=== PATIENT | female | born 1950 | race Caucasian/White ===

== ENCOUNTER 2020-08-21 14:42 | Emergency (ER) | payer MEDICARE, SELFPAY ==
[2020-08-21 15:24] VITALS: BP 168/99; PULSE 86; RESP 16; TEMP 37.3; O2SAT 96; BMI 41.0
--- NOTE | 2020-08-21 15:37 | US_ITS ---
EXAMINATION: US VENOUS ULTRASOUND WITH DOPPLER LOWER EXTREMITY, RIGHT CLINICAL INFORMATION: Pain and swelling COMPARISON: None TECHNIQUE: Ultrasound of the deep veins is performed from the hip to the calf with compression sonography and color and pulse Doppler assessment. Spectral analysis with color-flow imaging is performed. FINDINGS: There is normal venous compression and respiratory variation and augmented flow. The visualized common femoral vein, superficial femoral vein, profunda femoral vein, popliteal vein, and the trifurcation region shows no evidence of deep venous thrombosis. There is a 9 x 1.2 x 6.2 cm likely complex fluid collection inferior medial to the right knee in the proximal calf. This may represent a ruptured Bakers cyst. US/US venous duplex LE RT IMPRESSION: No DVT demonstrated in the right lower extremity. 9 x 1.2 x 6.2 cm slightly complex fluid collection in the medial proximal calf, question representing a ruptured Mistry's cyst.
--- NOTE | 2020-08-21 15:38 | XR_ITS ---
EXAMINATION: XR CHEST CLINICAL INFORMATION: Lower extremity swelling. COMPARISON: None TECHNIQUE: 2 views of the chest were obtained. FINDINGS: Mild linear markings are seen in the lingula. The left upper lung field and right lung are clear. The heart and mediastinal structures are unremarkable. XR/XR chest 2V IMPRESSION: Mild linear atelectasis versus scarring in the lingula. No acute cardiopulmonary process.
--- NOTE | 2020-08-21 15:51 | ED_ITS ---
HPI - Extremity Problem General Chief complaint: Extremity Injury, Lower Stated complaint: rt calf pain Time Seen by Provider: 08/21/20 15:19 Source: patient Mode of arrival: ambulatory Limitations: no limitations History of Present Illness HPI Narrative: 70yoF c PMHx of HTN, hypothyroidism and arthritis presenting to the ED c c/o Right leg swelling/calf pain for 2-3 days worse today. Denies any dizziness, headaches, fevers, chills, nausea/vomiting, chest pain, palpitations, shortness of breath, dyspnea on exertion, orthopnea, back pain, abdominal pain or any other symptoms complaints or concerns. Denies being on any OCPs, history of cancer, recent immobilization, recent travel or hypercoagulation disorder. Denies any other symptoms complaints or concerns at this time. Related Data Allergies Allergy/AdvReac Type Severity Reaction Status Date / Time No Known Allergies Allergy Verified 08/21/20 15:37 Review of Systems Review of Systems: Constitutional : No Weight loss, No Fever, No Chills, No Night Sweats, No Fatigue, No Malaise Eyes: No Eye Pain, No Swelling, No Vision Changes Cardiovascular : No SOB, no Dyspnea on Exertion, No Orthopnea, No Edema, No extremity swelling, No Palpitations Respiratory : No Cough, No Sputum, No Wheezing, No Dyspnea Gastrointestinal : No Nausea, No Vomiting, No Diarrhea, No abdominal Pain, No Hematochezia, No Melena Genitourinary : No irregular bleeding, No Dysuria, No Urinary Frequency, No Hematuria, No Urinary Incontinence, No Urgency, No Flank Pain, No Urinary Flow Changes, No Hesitancy Musculoskeletal : No joint pain, No Myalgias, No Joint Swelling,+ LE edema Skin : No Skin Lesions, No rash Neuro : No Weakness, No Numbness, No Paresthesias, No Loss of Consciousness, No Dizziness, No Headache Psych : No Anxiety/Panic, No Depression, No SI/HI/AH/VH Heme/Lymph: No Bruising, No Bleeding,No Lymphadenopathy Endocrine : No Polyuria, No Polydipsia, No Temperature Intolerance Yes all other systems are reviewed and are negative [facility] Past Medical History Attestation statement: The following information was validated with the patient. Medical History Adult hypothyroidism Arthritis Hypertension Social History Social History Advance Directives: No Advance Directives Information Provided: No Physical Exam Vital Signs: Vital Signs: Last Vital Signs Temp 99.2 F 08/21/20 15:24 Pulse 86 08/21/20 15:24 Resp 16 08/21/20 15:24 BP 168/99 H 08/21/20 15:24 Pulse Ox 96 08/21/20 15:24 Body Mass Index 41.0 vital signs have been reviewed as normal and appeared to be correct. Blood pressure normal. Heart rate normal. Respiration rate normal. Temperature normal. Oxygen saturation normal. Appearance: Alert. Oriented X3. No acute distress. Head: Normal external exam. Normocephalic. Eyes: PERRLA. EOMI. Conjunctiva and sclera normal. Eyelids normal. ENT: Pharynx normal. Uvula midline. Moist mucous membranes. Neck: Normal inspection. Neck supple. FROM. No adenopathy. No meningeal signs. CVS: Normal heart rate and rhythm. Heart sound normal. No murmurs noted. Pulses normal throughout. Respiratory: No respiratory distress. Painless inspiration. Breath sounds normal. No wheezes/rales/rhonchi noted. Chest nontender. No accessory muscle usage noted or decreased air movement noted. Back: Full range of motion noted. Skin: Skin warm and dry. Normal skin color. Normal skin turgor. No rashes/lesions/lacerations noted. Extremities: + RLE edema c calf tenderness. Mild left lower extremity edema although no calf tenderness. Otherwise Extremities exhibit normal range of motion. All other Extremities nontender. Neuro: Oriented X 3. No motor deficit. No sensory deficit. Reflexes normal. Course Course Course Narrative: 15:45pm - 70yoF c PMHx of HTN, hypothyroidism and arthritis presenting to the ED c c/o Right leg swelling/calf pain for 2-3 days worse today. - Concern for CVT vs CHF vs dependent edema. - Plan: Labs, CXR, US of RLE then re-evaluate MDM - Extremity (Nontraumatic) Medical Records Attestation: I reviewed the patient's medical records. Lab Data Attestation: I reviewed the patient's lab results. Result diagrams: 08/21/20 15:44 Labs: Lab Results 08/21/20 08/21/20 Range/Units 15:44 15:44 WBC 7.9 (4.8-10.8) X10*3/uL RBC 4.39 (4.20-5.50) X10*6/uL Hgb 13.3 (12.0-16.0) g/dl Hct 39.7 (37-47) % MCV 90.4 (80-98) fL MCH 30.3 (27.0-33.0) pg MCHC 33.5 (31.0-35.0) g/dl RDW 11.7 (11.0-16.0) % Plt Count 296 (160-400) X10*3/uL MPV 10.2 (9.4-12.3) fL Immature Gran % (Auto) 0.4 (0.0-0.4) % Neut % (Auto) 56.7 (45-73) % Lymph % (Auto) 30.4 (20-40) % [place] % (Auto) 8.2 (2-11) % Eos % (Auto) 3.0 (0-4) % Baso % (Auto) 1.3 (0-2) % Lymph # (Auto) 2.4 (1.2-4.9) X10*3/uL [place] # (Auto) 0.7 (0.1-1.2) X10*3/uL Eos # (Auto) 0.2 (0.0-0.4) X10*3/uL Baso # (Auto) 0.1 (0.0-0.2) X10*3/uL Abs Immat Gran (auto) 0.03 (0.00-0.03) X10*3/uL Absolute Neuts (auto) 4.5 (2.0-8.3) X10*3/uL Absolute Nucleated RBC 0.000 (0.0-0.012) X10*3/uL Nucleated RBC % (auto) 0.0 (0.0-0.2) /100WBC Hold Purple Top SEE NOTE
[2020-08-21 16:00] LABS: MANUAL DIFF FLAG NO
[2020-08-21 16:12] LABS: Basophils Absolute Auto 0.1 X10*3/uL (0.0-0.2); Basophils Percent Auto 1.3 % (0-2); Eosinophils Absolute Auto 0.2 X10*3/uL (0.0-0.4); Hematocrit 39.7 % (37-47); Hemoglobin 13.3 g/dl (12.0-16.0); Imm Gran Abs Auto 0.03 X10*3/uL (0.00-0.03); Imm Gran Pct Auto 0.4 % (0.0-0.4); Lymphocytes Absolute Auto 2.4 X10*3/uL (1.2-4.9); Lymphocytes Percent Auto 30.4 % (20-40); Mean Corpuscular HGB Conc 33.5 g/dl (31.0-35.0); Mean Corpuscular Hemoglobin 30.3 pg (27.0-33.0); Mean Corpuscular Volume 90.4 fL (80-98); Mean Platelet Volume 10.2 fL (9.4-12.3); Monocytes Absolute Auto 0.7 X10*3/uL (0.1-1.2); Monocytes Percent Auto 8.2 % (2-11); Neutrophils Absolute Auto 4.5 X10*3/uL (2.0-8.3); Neutrophils Percent Auto 56.7 % (45-73); Platelet Count 296 X10*3/uL (160-400); Red Blood Count 4.39 X10*6/uL (4.20-5.50); Red Cell Distribution Width 11.7 % (11.0-16.0); White Blood Count 7.9 X10*3/uL (4.8-10.8)
[2020-08-21 16:36] LABS: B Type Natriuretic Peptide 76 pg/mL (<100)
[2020-08-21 16:51] LABS: Prothrombin Time 12.3 SEC (10.8-13.0)
[2020-08-21 17:42] LABS: Alanine Aminotransferase 17 U/L (0-31); Albumin Level 4.4 g/dL (3.5-5.0); Alkaline Phosphatase 54 U/L (39-117); Anion Gap 11 (12-20); Aspartate Amino Transferase 24 U/L (5-31); Bilirubin Direct 0.2 mg/dL (0.0-0.5); Bilirubin Total 0.4 mg/dL (0.0-1.0); Blood Urea Nitrogen 18 mg/dL (9-16); Calcium 8.9 mg/dL (8.4-10.2); Carbon Dioxide 28 mmol/L (22-29); Chloride 109 mmol/L (96-108); Creatinine Clr Calc Pharmacy 61.4; Estimated Glomerular Filt Rate > 60; Glucose Random 91 mg/dL (60-115); Potassium 4.4 mmol/l (3.3-5.1); Sodium 144 mmol/L (135-145); Total Protein 6.8 g/dL (6.5-8.0)
== END 2020-08-21 18:02 | disposition home or self-care (01) ==
PROVIDERS: Physician Assistant Medical; Emergency Provider Emergency Medicine Emergency Medical Services; PCP Internal Medicine
DX: R60.0 Localized edema (principal); M79.604 Pain in right leg; I10 Essential (primary) hypertension; Z79.899 Other long term (current) drug therapy
CPT/HCPCS: 36415; 71046; 80048; 80076; 83880; 85025; 85610; 93971; 99283; 99284

== ENCOUNTER 2020-08-27 10:55 | Outpatient (REF) | payer MEDICARE, SELFPAY ==
--- NOTE | 2020-08-27 11:42 | XR_ITS ---
EXAMINATION: XR KNEES, STANDING AP XR KNEE, RIGHT CLINICAL INFORMATION: Right knee pain COMPARISON: None TECHNIQUE: Standing AP view both knees is performed. Lateral and axial patella views of the right knee are also included. FINDINGS: Right knee shows no fracture or dislocation. No knee compartment narrowing or erosive change or chondrocalcinosis. No definite effusion. Hoffa's fat pad appears normal. There is spurring at the quadriceps insertion on the patella. Axial view shows no patellofemoral joint narrowing or lateralization patella. The left knee shows no fracture, dislocation, destructive process, or joint narrowing. XR/XR knee standing BI IMPRESSION: Unremarkable knees.
--- NOTE | 2020-08-27 11:42 | XR_ITS ---
EXAMINATION: XR KNEES, STANDING AP XR KNEE, RIGHT CLINICAL INFORMATION: Right knee pain COMPARISON: None TECHNIQUE: Standing AP view both knees is performed. Lateral and axial patella views of the right knee are also included. FINDINGS: Right knee shows no fracture or dislocation. No knee compartment narrowing or erosive change or chondrocalcinosis. No definite effusion. Hoffa's fat pad appears normal. There is spurring at the quadriceps insertion on the patella. Axial view shows no patellofemoral joint narrowing or lateralization patella. The left knee shows no fracture, dislocation, destructive process, or joint narrowing. XR/XR knee RT 3V IMPRESSION: Unremarkable knees.
== END 2020-08-27 10:56 | disposition home or self-care (01) ==
LOC: HO.HOSX 10:55
PROVIDERS: Visit Provider Physician Assistant
DX: S86.811A Strain of other muscle(s) and tendon(s) at lower leg level, right leg, initial encounter (principal); R60.9 Edema, unspecified; X50.0XXA Overexertion from strenuous movement or load, initial encounter; Y93.H1 Activity, digging, shoveling and raking; Y92.014 Private driveway to single-family (private) house as the place of occurrence of the external cause; Y99.9 Unspecified external cause status
CPT/HCPCS: 73560; 73562; 73565; 99202

== ENCOUNTER 2021-07-03 14:23 | Emergency (ER) | payer MEDICARE, SELFPAY ==
--- NOTE | ~2021-07-03 | MR_ITS ---
EXAMINATION: MR BRAIN WITHOUT CONTRAST CLINICAL INFORMATION: Dizziness and vertigo. COMPARISON: None. TECHNIQUE: Multiplanar, multisequence imaging of the brain was performed without contrast. FINDINGS: No diffusion abnormalities are identified to suggest an acute infarct. The ventricles are normal in size. No mass effect or midline shift is seen. Nonspecific mild scattered white matter signal changes noted. No extra-axial fluid collections are seen. The brainstem and cerebellum are normal. There is an incidental 1.7 x 1 cm meningioma along the medial wall of the left middle cranial fossa, partially overlying the dura of the left cavernous sinus. The gradient refocused acquisition is normal. The craniovertebral junction and midline structures are normal. The major intracranial flow voids at the level of the [place] are preserved. The dural venous sinus flow voids are maintained. The mastoid air cells are well aerated. Small proteinaceous retention cysts and mild mucosal thickening visible in the left maxillary antrum. A round 0.8 cm low signal focus on T1-weighted imaging in the vertebral body is entirely nonspecific. The remainder of the marrow signal is fairly homogeneous. MR/MR head/brain wo con IMPRESSION: No acute intracranial process. Minimal nonspecific white matter signal changes. Incidental 1.7 cm left middle cranial fossa meningioma.
--- NOTE | ~2021-07-03 | CT_ITS ---
EXAMINATION: CT HEAD WITHOUT CONTRAST CLINICAL INFORMATION: New onset vertigo COMPARISON: None TECHNIQUE: Contiguous axial imaging was performed from the skull base to vertex without intravenous administration of contrast. Coronal and sagittal reformatted images are performed at CT scanner This CT examination was performed using dose optimization techniques as appropriate, variously including the following: *Automated exposure control *Adjustment of mA and/or kV according to patient size (this includes techniques or standardized protocols for targeted exams where dose is matched to indication/reason for exam; i.e. extremities or head) *Use of iterative reconstruction technique DLP: 845 mGy-cm FINDINGS: There is no evidence of acute intracranial hemorrhage or territorial infarction. No abnormal mass effect or midline shift is seen. Dao to white matter differentiation is well preserved. No extra-axial fluid collections are identified. The ventricles are normal in size. There is no abnormal attenuation within the brain parenchyma. The osseous structures and soft tissues are normal. The mastoid air cells and visualized portions of the paranasal sinuses are well aerated. CT/CT head/brain wo con IMPRESSION: No acute intracranial pathology.
--- NOTE | 2021-07-03 17:38 | ED.DIZZY ---
HPI - Dizziness General Chief Complaint: Dizziness <Christophe Khan MD - Last Filed: 07/03/21 17:52> Stated Complaint: dizziness <Christophe Khan MD - Last Filed: 07/03/21 17:52> Time Seen by Provider: 07/03/21 17:38 <Christophe Khan MD - Last Filed: 07/03/21 17:52> Source: patient <Christophe Khan MD - Last Filed: 07/03/21 17:52> Mode of arrival: ambulatory <Christohpe Khan MD - Last Filed: 07/03/21 17:52> Limitations: no limitations <Christophe Khan MD - Last Filed: 07/03/21 17:52> History of Present Illness HPI Narrative: Patient has been getting dizzy in the morning when she wakes up. Patient vomitted twice 4 days ago when it started. patient describes the dizziness as the room spinning. No ear ringing or loss of hearing. The initial episode happened when she had a cramp in her leg and jumped out of bed and the dizziness suddenly happened. <Christophe Khan MD - Last Filed: 07/03/21 17:52> MD elicited complaint: dizziness <Christophe Khan MD - Last Filed: 07/03/21 17:52> Onset (ago): day(s) <Christophe Khan MD - Last Filed: 07/03/21 17:52> Timing: sudden onset <Christophe Khan MD - Last Filed: 07/03/21 17:52> Severity: mild <Christophe Khan MD - Last Filed: 07/03/21 17:52> Description: sense of movement and room spinning <Christophe Khan MD - Last Filed: 07/03/21 17:52> Associated symptoms: nausea and vomiting <Christophe Khan MD - Last Filed: 07/03/21 17:52> Related Data Home Medications: Previous Rx's Medication Instructions Recorded Knee high compression sock 30/40 #1 ea 09/09/20 mmhg meclizine 25 mg tablet 25 mg PO DAILY PRN #30 tab 07/03/21 <Christophe Khan MD - Last Filed: 07/03/21 17:52> Allergies/Adverse Reactions: Allergies Allergy/AdvReac Type Severity Reaction Status Date / Time estrogens, conjugated Allergy Intermediate Rash Verified 07/03/21 18:21 [From Prempro] medroxyprogesterone Allergy Intermediate Rash Verified 07/03/21 18:21 [From Prempro] <Christophe Khan MD - Last Filed: 07/03/21 17:52> Review of Systems Constitutional: Constitutional: Reports no additional constitutional complaints <Christophe Khan MD - Last Filed: 07/03/21 17:52> Eyes: Eyes: Reports no additional eye complaints <Christophe Khan MD - Last Filed: 07/03/21 17:52> ENT: Denies dizziness <Christophe Khan MD - Last Filed: 07/03/21 17:52> Cardiovascular: Cardiovascular: Reports no additional cardiovascular complaints <Christophe Khan MD - Last Filed: 07/03/21 17:52> Respiratory: Respiratory: Reports as per HPI <Christophe Khan MD - Last Filed: 07/03/21 17:52> Gastrointestinal: Gastrointestinal: Reports no additional gastrointestinal complaints <Christophe Khan MD - Last Filed: 07/03/21 17:52> Genitourinary: Genitourinary: Reports no additional female genitourinary complaints <Christophe Khan MD - Last Filed: 07/03/21 17:52> Musculoskeletal: Musculoskeletal: Reports no additional musculoskeletal complaints <Christophe Khan MD - Last Filed: 07/03/21 17:52> Integumentary/Breasts: Skin/Breast: Denies rash <Christophe Khan MD - Last Filed: 07/03/21 17:52> Neurologic: Reports system reviewed and no additional complaints, except as documented, Denies dizziness and Denies Sensory deficit (Neuro) <Christophe Khan MD - Last Filed: 07/03/21 17:52> Psychiatric: Psychiatric: Denies anxiety <Christophe Khan MD - Last Filed: 07/03/21 17:52> PMFSH Past Medical History Medical History: Medical History Adult hypothyroidism Arthritis Hypertension <Christophe Khan MD - Last Filed: 07/03/21 17:52> Social History Social History: Social History (Updated 08/27/20 @ 11:57 by Tawnya Mejia PA-C) Alcohol intake: never Patient Tobacco Use Status: Never used Tobacco Use of substances other than those prescribed or required for medical reasons: No Advance Directives: No Advance Directives Information Provided: Yes Current occupational status: retired Current occupation: [employer] <Christophe Khan MD - Last Filed: 07/03/21 17:52> Physical Exam Vital Signs: Vital Signs: Last Vital Signs Temp 97.9 F 07/03/21 21:10 Pulse 72 07/03/21 21:10 Resp 20 07/03/21 21:10 BP 145/66 H 07/03/21 21:10 Pulse Ox 98 07/03/21 21:10 Body Mass Index 38.0 <Christophe Khan MD - Last Filed: 07/03/21 17:52> Vital Signs: Last Vital Signs Temp 97.9 F 07/03/21 21:10 Pulse 72 07/03/21 21:10 Resp 20 07/03/21 21:10 BP 145/66 H 07/03/21 21:10 Pulse Ox 98 07/03/21 21:10 Body Mass Index 38.0 <Jesica Still MD - Last Filed: 07/04/21 11:14> Const: General: healthy appearing <Christophe Khan MD - Last Filed: 07/03/21 17:52> Nutritional Appearance: average body habitus <Christophe Khan MD - Last Filed: 07/03/21 17:52> Orientation/consciousness: oriented to person and patient oriented x3 <Christophe Khan MD - Last Filed: 07/03/21 17:52> Limitations: no limitations <Christophe Khan MD - Last Filed: 07/03/21 17:52> HENMT: Head: Yes normal to inspection <Christophe Khan MD - Last Filed: 07/03/21 17:52> Ears: external ears normal and TM's normal bilaterally <Christophe Khan MD - Last Filed: 07/03/21 17:52> General nose exam: Normal external nose present <Christophe Khan MD - Last Filed: 07/03/21 17:52> Mouth: Normal oral and palatal mucosa present and oropharynx normal <Christophe Khan MD - Last Filed: 07/03/21 17:52> Throat: Yes posterior oropharynx normal <Christophe Khan MD - Last Filed: 07/03/21 17:52> Eyes: Other: no nystagmus <Christophe Khan MD - Last Filed: 07/03/21 17:52> General: appearance normal, both eyes and all related structures <Christophe Khan MD - Last Filed: 07/03/21 17:52> Neck: Other: supple <Christophe Khan MD - Last Filed: 07/03/21 17:52> Neck: Yes normal visual inspection <Christophe Khan MD - Last Filed: 07/03/21 17:52> Chest: Chest palpation & inspection: normal inspection of the chest <Christophe Khan MD - Last Filed: 07/03/21 17:52> Resp: Auscultation: clear to auscultation bilaterally <Christophe Khan MD - Last Filed: 07/03/21 17:52> Cardio: Jugular venous distension: no JVD <Christophe Khan MD - Last Filed: 07/03/21 17:52> Rate: regular rate <Christophe Khan MD - Last Filed: 07/03/21 17:52> Rhythm: regular rhythm <Christophe Khan MD - Last Filed: 07/03/21 17:52> Heart sounds: S1 normal heart sound present and S2 normal heart sound present <Christophe Khan MD - Last Filed: 07/03/21 17:52> GI: Inspection: Yes normal to inspection <Christophe Khan MD - Last Filed: 07/03/21 17:52> Palpation (GI): Soft to palpation, nontender and No hepatosplenomegaly present <Christophe Khan MD - Last Filed: 07/03/21 17:52> Auscultation: normal bowel sounds <Christophe Khan MD - Last Filed: 07/03/21 17:52> : General: Yes no CVA tenderness <Christophe Khan MD - Last Filed: 07/03/21 17:52> Back/Spine/Pelvis: Back: no CVA tenderness <Christophe Khan MD - Last Filed: 07/03/21 17:52> Skin: General skin exam: no rashes or lesions noted <Christophe Khan MD - Last Filed: 07/03/21 17:52> Neuro: Other: slight feeling of movement with changes in position. No nystagmus <Christophe Khan MD - Last Filed: 07/03/21 17:52> General: oriented to person and patient oriented x3 <Christophe Khan MD - Last Filed: 07/03/21 17:52> Cranial nerves: Yes CN's II-XII intact bilaterally <Christophe Khan MD - Last Filed: 07/03/21 17:52> Motor exam (neuro): 5/5 motor strength present throughout <Christophe Khan MD - Last Filed: 07/03/21 17:52> Sensory Exam: No Sensory deficit (Neuro) <Christophe Khan MD - Last Filed: 07/03/21 17:52> Extrem: General: Yes normal to inspection <Christophe Khan MD - Last Filed: 07/03/21 17:52> Psych: Appearance: grossly normal <Christophe Khan MD - Last Filed: 07/03/21 17:52> Course Course Course Narrative: Assessment and plan. 70-year-old female came in for evaluation of dizziness and lower extremities cramps, patient was seen initially by Dr. Mohamud pike and signed out to me to check on test results. Repeat neuro exam is unremarkable andNIH score is 0, CT/MRI is unremarkable. Will discharge the patient on meclizine and drink plenty of fluid, patient was instructed also to move slowly when changed position. <Jesica Still MD - Last Filed: 07/04/21 11:14> MDM - Dizziness Medical Records Attestation: I reviewed the patient's medical records. <Jesica Still MD - Last Filed: 07/04/21 11:14> Lab Data Attestation: I reviewed the patient's lab results. <Jesica Still MD - Last Filed: 07/04/21 11:14> Result diagrams: : 07/03/21 18:35 07/03/21 18:35 <Christophe Khan MD - Last Filed: 07/03/21 17:52> Labs: Lab Results 07/03/21 07/03/21 Range/Units 18:35 18:35 WBC 6.1 (4.8-10.8) X10*3/uL RBC 4.25 (4.20-5.50) X10*6/uL Hgb 13.2 (12.0-16.0) g/dl Hct 38.2 (37-47) % MCV 89.9 (80-98) fL MCH 31.1 (27.0-33.0) pg MCHC 34.6 (31.0-35.0) g/dl RDW 11.7 (11.0-16.0) % Plt Count 267 (160-400) X10*3/uL MPV 10.0 (9.4-12.3) fL Immature Gran % (Auto) 0.2 (0.0-0.4) % Neut % (Auto) 47.3 (45-73) % Lymph % (Auto) 38.9 (20-40) % Early % (Auto) 9.2 (2-11) % Eos % (Auto) 3.1 (0-4) % Baso % (Auto) 1.3 (0-2) % Lymph # (Auto) 2.4 (1.2-4.9) X10*3/uL Early # (Auto) 0.6 (0.1-1.2) X10*3/uL Eos # (Auto) 0.2 (0.0-0.4) X10*3/uL Baso # (Auto) 0.1 (0.0-0.2) X10*3/uL Abs Immat Gran (auto) 0.01 (0.00-0.03) X10*3/uL Absolute Neuts (auto) 2.9 (2.0-8.3) X10*3/uL Absolute Nucleated RBC 0.000 (0.0-0.012) X10*3/uL Nucleated RBC % (auto) 0.0 (0.0-0.2) /100WBC Sodium 142 (135-145) mmol/L Potassium 4.3 (3.3-5.1) mmol/L Chloride 108 (96-108) mmol/L Carbon Dioxide 25 (22-29) mmol/L Anion Gap 13 (12-20) BUN 17 H (9-16) mg/dL Creatinine 0.84 (0.5-1.4) mg/dL Estim Creat Clear Calc 61.6 Estimated GFR > 60 Random Glucose 95 (60-115) mg/dL Calcium 9.3 (8.4-10.2) mg/dL <Christophe Khan MD - Last Filed: 07/03/21 17:52> Lab Results 07/03/21 07/03/21 Range/Units 18:35 18:35 WBC 6.1 (4.8-10.8) X10*3/uL RBC 4.25 (4.20-5.50) X10*6/uL Hgb 13.2 (12.0-16.0) g/dl Hct 38.2 (37-47) % MCV 89.9 (80-98) fL MCH 31.1 (27.0-33.0) pg MCHC 34.6 (31.0-35.0) g/dl RDW 11.7 (11.0-16.0) % Plt Count 267 (160-400) X10*3/uL MPV 10.0 (9.4-12.3) fL Immature Gran % (Auto) 0.2 (0.0-0.4) % Neut % (Auto) 47.3 (45-73) % Lymph % (Auto) 38.9 (20-40) % Early % (Auto) 9.2 (2-11) % Eos % (Auto) 3.1 (0-4) % Baso % (Auto) 1.3 (0-2) % Lymph # (Auto) 2.4 (1.2-4.9) X10*3/uL Early # (Auto) 0.6 (0.1-1.2) X10*3/uL Eos # (Auto) 0.2 (0.0-0.4) X10*3/uL Baso # (Auto) 0.1 (0.0-0.2) X10*3/uL Abs Immat Gran (auto) 0.01 (0.00-0.03) X10*3/uL Absolute Neuts (auto) 2.9 (2.0-8.3) X10*3/uL Absolute Nucleated RBC 0.000 (0.0-0.012) X10*3/uL Nucleated RBC % (auto) 0.0 (0.0-0.2) /100WBC Sodium 142 (135-145) mmol/L Potassium 4.3 (3.3-5.1) mmol/L Chloride 108 (96-108) mmol/L Carbon Dioxide 25 (22-29) mmol/L Anion Gap 13 (12-20) BUN 17 H (9-16) mg/dL Creatinine 0.84 (0.5-1.4) mg/dL Estim Creat Clear Calc 61.6 Estimated GFR > 60 Random Glucose 95 (60-115) mg/dL Calcium 9.3 (8.4-10.2) mg/dL <Jesica Still MD - Last Filed: 07/04/21 11:14> Imaging Data CT scan - head: Radiologist's impression: No acute intracranial pathology. <Jesica Still MD - Last Filed: 07/04/21 11:14> MRI - head: Radiologist's impression: No acute intracranial process. Minimal nonspecific white matter signal changes. Incidental 1.7 cm left middle cranial fossa meningioma. <Jesica Still MD - Last Filed: 07/04/21 11:14> Discharge Plan Discharge Clinical Impression: Vertigo <Christophe Khan MD - Last Filed: 07/03/21 17:52> Patient Disposition: Home, Self-Care <Christophe Khan MD - Last Filed: 07/03/21 17:52> Instructions: Vertigo (ED) <Christophe Khan MD - Last Filed: 07/03/21 17:52> Prescriptions: New meclizine 25 mg tablet 25 mg PO DAILY PRN (Reason: dizziness) Qty: 30 RF: 0 No Action (DME) Knee high compression sock 30/40 mmhg See Rx Instructions .ROUTE .MEDSUPPLY Qty: 1 RF: 0 <Christophe Khan MD - Last Filed: 07/03/21 17:52> Referrals: Cindy De Los Santos MD [Primary Care Provider] - 2 days <Christophe Khan MD - Last Filed: 07/03/21 17:52> Interventions: ED Discharge Assessment Last Done: 07/03/21 21:52 <Christophe Khan MD - Last Filed: 07/03/21 17:52> Discharge Date/Time: 07/03/21 22:04 <Christophe Khan MD - Last Filed: 07/03/21 17:52>
--- NOTE | 2021-07-03 17:52 | ECG_ITS ---
Test Reason : Dizziness Blood Pressure : / mmHG Vent. Rate : 071 BPM Atrial Rate : 071 BPM P-R Int : 130 ms QRS Dur : 084 ms QT Int : 408 ms P-R-T Axes : -03 -12 -13 degrees QTc Int : 443 ms Normal sinus rhythm with sinus arrhythmia Left axis deviation Nonspecific T wave abnormality Abnormal ECG No previous ECGs available Referred By: Christophe Khan Electronically Signed By:CUAUHTEMOC ANDERSON MD
[2021-07-03 18:21] VITALS: BP 154/83; PULSE 73; RESP 18; TEMP 36.7; BMI 38.0
--- NOTE | 2021-07-03 18:36 | PC.NURSE ---
patient a&ox3, iv inserted, labs drawn, quality assurance monitor chassis applied, vss, will continue to monitor
[2021-07-03 18:43] LABS: MANUAL DIFF FLAG NO
[2021-07-03 18:44] LABS: Basophils Absolute Auto 0.1 X10*3/uL (0.0-0.2); Basophils Percent Auto 1.3 % (0-2); Eosinophils Absolute Auto 0.2 X10*3/uL (0.0-0.4); Eosinophils Percent Auto 3.1 % (0-4); Hematocrit 38.2 % (37-47); Hemoglobin 13.2 g/dl (12.0-16.0); Imm Gran Abs Auto 0.01 X10*3/uL (0.00-0.03); Imm Gran Pct Auto 0.2 % (0.0-0.4); Lymphocytes Absolute Auto 2.4 X10*3/uL (1.2-4.9); Lymphocytes Percent Auto 38.9 % (20-40); Mean Corpuscular HGB Conc 34.6 g/dl (31.0-35.0); Mean Corpuscular Hemoglobin 31.1 pg (27.0-33.0); Mean Corpuscular Volume 89.9 fL (80-98); Monocytes Absolute Auto 0.6 X10*3/uL (0.1-1.2); Monocytes Percent Auto 9.2 % (2-11); Neutrophils Absolute Auto 2.9 X10*3/uL (2.0-8.3); Neutrophils Percent Auto 47.3 % (45-73); Platelet Count 267 X10*3/uL (160-400); Red Blood Count 4.25 X10*6/uL (4.20-5.50); Red Cell Distribution Width 11.7 % (11.0-16.0); White Blood Count 6.1 X10*3/uL (4.8-10.8)
[2021-07-03 18:56] LABS: Anion Gap 13 (12-20); Blood Urea Nitrogen 17 mg/dL (9-16); Calcium 9.3 mg/dL (8.4-10.2); Carbon Dioxide 25 mmol/L (22-29); Chloride 108 mmol/L (96-108); Creatinine Clr Calc Pharmacy 61.6; Estimated Glomerular Filt Rate > 60; Glucose Random 95 mg/dL (60-115); Potassium 4.3 mmol/L (3.3-5.1); Sodium 142 mmol/L (135-145)
--- NOTE | 2021-07-03 19:30 | PC.NURSE ---
pt transported to mri
[2021-07-03 21:10] VITALS: BP 145/66; PULSE 72; RESP 20; TEMP 36.6; O2SAT 98
--- NOTE | 2021-07-03 21:23 | PC.NURSE ---
patient returned from MRI, EKG was performed upon her return, vitals are stable, no c/o pain or discomfort at this time, will continue to monitor.
== END 2021-07-03 22:04 | disposition home or self-care (01) ==
PROVIDERS: Emergency Provider Emergency Medicine; PCP Internal Medicine
DX: R42 Dizziness and giddiness (principal); I10 Essential (primary) hypertension
CPT/HCPCS: 36415; 70450; 70551; 80048; 85025; 93005; 99284; 99285

== ENCOUNTER 2025-04-22 14:11 | Outpatient (AMB) | payer MEDICARE, SELFPAY ==
--- OUTSIDE RECORDS SUMMARY | 2025-04-22 14:58 | XMS_ITS | Clinical Summary ---
Author Organization [address] [place] [address] [place] [phone] Phone Care Team Providers Care Icu Specialist Name Role Phone Cindy De Los Santos MD Primary Care Provider [phone] Allergies Active Allergy Reactions Criticality Noted Date Comments Conj Estrog-Medroxyprogest Fer Nausea And Vomiting 05/25/2006 Other Reaction(s): Rash/Dermatitis Medications diclofenac (VOLTAREN) 1 % topical gel Apply 1 Dose topically See Admin Instructions. Apply 4 g to each affected area up to 4 times daily; maximum dose per joint: 16 g/day; maximum total body dose (all combined joints): 32 g/day. 4 Active ascorbic acid (VITAMIN C) 1,000 mg tablet Take 1 tablet (1,000 mg total) by mouth. Active MULTIVITAMIN ORAL Take 1 tablet by mouth. Active cholecalciferol (VITAMIN D-3) 25 mcg (1,000 unit) capsule Take 1 capsule (1,000 Units total) by mouth. Active aspirin 81 mg EC tablet Take 1 tablet (81 mg total) by mouth 1 (one) time each day. Active calcium carb/vit D3/minerals (CALCIUM-VITAMI N D ORAL) Take by mouth. Activ e fluticasone propionate (FLONASE) 50 mcg/actuation nasal spray Administer 2 sprays into each nostril 1 (one) time each day for 14 days. Shake gently. Before first use, prime pump. After use, clean tip and replace cap. 16 g 5 Active meclizine (ANTIVERT) 25 mg tablet TAKE 1 TABLET BY MOUTH THREE TIMES A DAY NEEDED FOR DIZZINESS 30 tablet 3 5 Active atorvastatin (LIPITOR) 20 mg tablet TAKE 1 TABLET BY MOUTH EVERY DAY 90 tablet 1 5 Active levothyroxine (SYNTHROID, LEVOTHROID) 75 mcg tabletIndicatio ns:Melena,Abnor mal findings on diagnostic imaging of other specified body structures TAKE 1 TABLET BY MOUTH EVERY DAY 90 tablet 1 5 Active lisinopriL (PRINIVIL,ZESTR IL) 10 mg tablet TAKE 1 TABLET BY MOUTH EVERY DAY 90 tablet 5 Active Active Problems Problem Noted Date Diagnosed Date Morbid obesity with BMI of 4 0.0-44.9, adult ([facility] V24, [facility] V28) 08/14/2024 Vertigo 11/03/2021 Overview (08/14/2024): Dr. jose Constipation 04/26/2018 White coat syndrome with diagnosis of hypertensi on 03/09/2017 Meningioma ([facility] V24, [facility] V28) 10/01/2015 Overview (08/14/2024): Left middle temporal fossa- Dr. Jose Hypothyroidism 05/25/2006 Pure hypercholesterolemia 05/25/2006 Immunizations Name Administration Dates Next Due H1N1 Inj Preservative Free 08/18/2009 Influenza Quadravalent, MDCK , 0.5ml, with preservative (Flucelvax) 6mo and older 08/16/2017 Influenza trivalent, 0.5mL ( Fluad) 65yo and older 06/09/2022,06/05/2021,06/05/2019,2017 Influenza trivalent, 0.5mL, preservative free (Fluarix; FluLaval; Fluzone) ages 6mo and older (Afluria) 3 years and older 06/25/2023,06/09/2022,05/28/2020,2015,05/26/2015,07/16/2014,07/24/2013,1 ,08/18/2009,07/11/2008 Influenza, Unspecified 06/05/2021,06/05/2019 Moderna (age 6mo & older) Bi valent, COVID-19, 0.5 mL or 0.25 mL dosage 06/09/2022 Moderna SARS-CoV-2 COVID-19, mRNA, LNP-S, preservative free 06/25/2024 Pfizer (ages 12 & older) Biv alent, COVID-19 06/25/2023 Pneumococcal conjugate 13 va lent (Prevnar 13, PCV13) 2mo and older 03/30/2017 Pneumococcal conjugate 20 va lent (Prevnar 20, PCV 20) 2mo and older 08/02/2023 Td Tetanus diptheria (Tdvax) 7yo and older 05/31/2005,08/14/2003 Td, Unspecified 08/14/2003 Tdap Tetanus diptheria acell ular pertussis (Boostrix; Adacel) 7yo and older 08/02/2023,04/01/2011,05/31/2005 Zoster Live 05/29/2014 Zoster recombinant (Shingrix ) 19yo and older 01/19/2024,08/12/2023 Surgical History Surgery Date Site/Laterality Comments COLONOSCOPY 2012 PROCEDURE: HISTORICAL COLONOSCOPY; COMMENT: no polyps COLONOSCOPY 2006 PROCEDURE: HISTORICAL COLONOSCOPY; COMMENT: no polyps. COLONOSCOPY 08/13/2002 PROCEDURE: HISTORICAL COLONOSCOPY; COMMENT: 5 mm sigmoid colon polyp. COLONOSCOPY 08/08/2018 PROCEDURE: HISTORICAL COLONOSCOPY; COMMENT: 7 mm sigmoid colon polyp: tubular adenoma. Medical History Medical History Date Comments Pure hypercholesterolemia 05/25/2006 DX:Pur e hypercholesterolemia Unspecified hypothyroidism 05/25/2006 DX:Un specified hypothyroidism Obesity, unspecified 05/25/2006 DX:Obesity, unspecified Personal history of colonic polyps DX:Personal history of colonic polyps Family history of malignant neoplasm of gastrointestinal tract 10/24/2006 DX:Family history of maligna nt neoplasm of gastrointestinal tract; COMMENT: first-degree x 1, diagnosis older than 60. Negative colonoscopy 10/24/2006, no colon cancer screening needed for 5 years. Fracture of ankle DX:Fracture of ankle; COMMENT: right White coat syndrome with william gnosis of hypertension 03/09/2017 Family History Medical History Relation Name Comments Heart attack Father age 49, fr om Ca no details (pt smoker, may be lung Ca) Alzheimer's disease Mother Arthritis Mother Colon cancer Mother Breast cancer Sister 1 Cancer of Small Bowel Neg Hx Kidney cancer Neg Hx Ovarian cancer Neg Hx Pancreatic cancer Neg Hx Uterine cancer Neg Hx Relation Name Status Comments Brother 1 Brother 2 Alive Brother 3 Alive Brother 4 Alive Brother 5 Alive Daughter Alive Father (Age 85) Mother (Age 87) Sister 1 Sister 2 Sister 3 Alive Sister 4 Alive Social History Tobacco Use Types Packs/Day Years Used Date Smoking Tobacco: Never Smokeless Tobacco: Never Tobacco Cessation:Counseling Given: Not Answered Alcohol Use Standard Drinks/Week Comments No 0 (1 standard drink = 0.6 oz pur e alcohol) Comments Unknown Sex and Gender Information Value Date Recorded Sex Assigned at Not on file Legal Sex Female 9:26 AM EST Gender Identity Not on file Sexual Orientation Not on file Obstetrics History Last Filed Vital Signs Vital Sign Reading Time Taken Comments Blood Pressure 112/72 12/03/2024 9:33 AM EDT Pulse 74 12/03/2024 9:33 AM EDT Temperature 36.3 C (97.3 F) 12/03/2024 9:33 AM EDT Respiratory Rate 14 12/03/2024 9:33 AM EDT Oxygen Saturation 98% 12/03/2024 9:33 AM EDT Inhaled Oxygen Concentration - - Weight 92.5 kg (204 lb) 12/03/2024 9:33 AM EDT Height 152.4 cm (5') 12/03/2024 9:33 AM EDT Body Mass Index 39.84 12/03/2024 9:33 AM EDT Plan of Treatment Upcoming Encounters Date Type Department Care Team (Late st Contact Info) Description 07/01/2025 9:45 AM EDT Office Visit Adult Medicine [address] [phone] Cindy De Los Santos MD [address] [place] [address] Health Maintenance Due Date Last Done Comments RSV Immunization Adult Patients (1 - Risk 60-74 years 1-dose series) 2010 Falls Risk Assessment 08/14/2022 Medicare Annual Wellness Visit 08/14/2022 Social Influencers of Health Screening 08/14/2022 COVID-19 Vaccine ( season) 2024 06/25/2024, 06/25/2023, 06/09/2022, Additional history exists Depression Screening 09/05/2024 Influenza Vaccine (#1) 2025 , 06/25/2023, 06/09/2022, Additional history exists Hypertension/CHF/CAD Annual BMP Blood Test 12/26/2025 12/26/2024, 05/29/2024, 05/29/2024 Breast Cancer Screening 06/27/2026 06/27/20, 06/27/2024, 05/07/2023, Additional history exists Colorectal Cancer Screening: Colonoscopy 08/31/2028 08/31/2023 Cholesterol Screening (Lipid Panel) 12/26/2029 12/26/2024, 05/29/2024, 05/29/2024, Additional history exists Osteoporosis Screening (Bone Density Screening) 07/19/2033 07/19/2023, 04/23/2020, 12/23/2016 DTaP,Tdap,and Td Vaccines (7 - Td or Tdap) 08/02/2033 08/02/2023, 04/01/2011, 05/31/2005, Additional history exists Hepatitis C Screening Completed 08/13/2014 Pneumococcal Vaccine: 50+ Years Completed 08/02/2023, 03/30/2017 Zoster Vaccines Completed 01/19/2024, 04/2023, 05/29/2014 HIB Vaccines Aged Out No longer eligi ble based on patient's age to complete this topic HPV Vaccines Aged Out No longer eligi ble based on patient's age to complete this topic Hepatitis A Vaccines Aged Out No long er eligible based on patient's age to complete this topic Hepatitis B Vaccines Aged Out No long er eligible based on patient's age to complete this topic IPV Vaccines Aged Out No longer eligi ble based on patient's age to complete this topic MMR Vaccines Aged Out No longer eligi ble based on patient's age to complete this topic Meningococcal ACWY Vaccine Aged Out N o longer eligible based on patient's age to complete this topic Meningococcal B Vaccine Aged Out No l onger eligible based on patient's age to complete this topic RSV Immunization Patients Under 20 months Aged Out No longer eligible based on patient's age to complete this topic Varicella Vaccines Aged Out No longer eligible based on patient's age to complete this topic Procedures Procedure Name Priority Date/Time Associated Diagnosis Comments COMPREHENSIVE METABOLIC PANEL Routine 12/26/2024 9:05 AM EDT Urinary frequency Pain of left calf Pure hypercholesterolemia LIPID PANEL WITH REFLEX TO DIRECT LDL Routine 12/26/2024 9:05 AM EDT Urinary frequency Pain of left calf Pure hypercholesterolemia SCREENING MAMMOGRAPHY BI 2-VIEW BREAST INC CAD Routine 06/27/2024 4:37 PM EDT Encounter for screening mammogram for malignant neoplasm of breast COLONOSCOPY Routine 08/31/2023 DXA BONE DENSITY STUDY 1+ SITS AXIAL SKEL Routine 07/19/2023 11:46 AM EST Asymptomatic menopausal state HEPATITIS C SCREENING Routine 08/13/2014 from Last 3 Months or Most Recently Relevant to Health Maintenance Results * Lipid panel with reflex to direct LDL (12/26/2024 9:05 AM EDT) Cholesterol 189 0 - 200 mg/dL LAB CHEMISTRY METHOD 12/26/2024 1:01 PM [facility] Triglycerides 143 0 - 150 mg/dL LAB CHEMISTRY METHOD 12/26/2024 1:01 PM [facility] HDL 61 >=40 mg/dL LAB CHEMISTRY METHOD 12/26/2024 1:01 PM [facility] LDL Calculated 99 0 - 100 mg/dL LAB CHEMISTRY METHOD 12/26/2024 1:01 PM [facility] VLDL Cholesterol Uriel 28.6 mg/dL LAB CHEMISTRY METHOD 12/26/2024 1:01 PM [facility] Non HDL Chol. (LDL+VLDL) 128 <145 mg/dL LAB CHEMISTRY METHOD 12/26/2024 1:01 PM [facility] Chol/HDL Ratio 3.1 0.0 - 4.4 LAB CHEMISTRY METHOD 12/26/2024 1:01 PM [facility] Blood Venous blood specimen / Unknown Venipuncture / Unknown 12/26/2024 9:05 AM EDT 12/26/2024 9:05 AM EDT us Dash THACKER LAB BLOOD ORDERABLES Fin al Result [facility] [address] [place] [address], * (ABNORMAL) Comprehensive metabolic panel (12/26/2024 9:05 AM EDT) Sodium 141 133 - 145 mmol/L LAB CHEMISTRY METHOD 12/26/2024 1:01 PM [facility] Potassium 4.2 3.5 - 5.5 mmol/L LAB CHEMISTRY METHOD 12/26/2024 1:01 PM [facility] Chloride 109 96 - 110 mmol/L LAB CHEMISTRY METHOD 12/26/2024 1:01 PM [facility] CO2 28 21 - 32 mmol/L LAB CHEMISTRY METHOD 12/26/2024 1:01 PM [facility] Anion Gap 4 3 - 11 LAB CHEMISTRY METHOD 12/26/2024 1:01 PM [facility] Glucose 111(H) 70 - 100 mg/dL LAB CHEMISTRY METHOD 12/26/2024 1:01 PM [facility] BUN 27(H) 5 - 25 mg/dL LAB CHEMISTRY METHOD 12/26/2024 1:01 PM [facility] Creatinine 0.98 0.50 - 1.10 mg/dL LAB CHEMISTRY METHOD 12/26/2024 1:01 PM [facility] eGFR 61 >=60 mL/min/1. 73m2 LAB CHEMISTRY METHOD 12/26/2024 1:01 PM [facility] Comment:Calculation based on the Chronic Kidney Disease Epidemiology Collaboration (CKD-EPI) equation refit without adjustment for race. BUN/Creatinine Ratio 27.6 LAB CHEMISTRY METHOD 12/26/2024 1:01 PM T [facility] Calcium 9.1 8.5 - 10.5 mg/dL LAB CHEMISTRY METHOD 12/26/2024 1:01 PM [facility] AST (SGOT) 14 10 - 42 unit/L LAB CHEMISTRY METHOD 12/26/2024 1:01 PM [facility] ALT (SGPT) 27 10 - 60 unit/L LAB CHEMISTRY METHOD 12/26/2024 1:01 PM [facility] Alkaline Phosphatase 66 42 - 121 unit/L LAB CHEMISTRY METHOD 12/26/2024 1:01 PM [facility] Total Protein 6.7 6.0 - 8.0 g/dL LAB CHEMISTRY METHOD 12/26/2024 1:01 PM [facility] Albumin 3.9 3.2 - 5.0 g/dL LAB CHEMISTRY METHOD 12/26/2024 1:01 PM [facility] Total Bilirubin 0.6 0.0 - 1.4 mg/dL LAB CHEMISTRY METHOD 12/26/2024 1:01 PM [facility] Blood Venous blood specimen / Unknown Venipuncture / Unknown 12/26/2024 9:05 AM EDT 12/26/2024 9:05 AM EDT us Dash THACKER LAB BLOOD ORDERABLES Fin al Result [facility] [address] [place] [address], * SCREENING MAMMOGRAPHY BI 2-VIEW BREAST INC CAD (06/27/2024 4:37 PM EDT) Anatomical Region Laterality Modality Radiographic Reema ging 05/07/2023 9:19 AM EDT Narrative 06/28/2024 3:47 PM EDT This is a summary report. The complete report is available in the patient's medical record. If you cannot access the medical record, please contact the sending organization for a detailed fax or copy. BILATERAL 3D DIGITAL SCREENING MAMMOGRAM History: Routine screening. No current breast complaints. Family history of breast cancer in sister Comparison: Multiple priors dating back to 04/23/2020 Technique: Bilateral full-field digital 3D mammography was performed using standard CC and MLO projections CAD was used to evaluate this mammogram. Findings: Density: There are scattered areas of fibroglandular density-B RIGHT: No suspicious masses, groups of microcalcification or areas of architectural distortion identified. Stable typically benign parenchymal asymmetries LEFT: No suspicious masses, groups of microcalcifications or areas of architectural distortion identified. Stable typically benign parenchymal asymmetries IMPRESSION: : 1. No mammographic evidence of malignancy. BI-RADS Category 2 benign findings Recommendation: Routine annual screening mammography is recommended [address] [id number] Procedure Note Hortencia Auguste MD - 07/30/2024 This is a summary report. The complete report is available in thepatient's medical record. If you cannot access the medical record, pleasecontact the sending organization for a detailed fax or copy. BILATERAL 3D DIGITAL SCREENING MAMMOGRAM History: Routine screening. No current breast complaints. Family historyof breast cancer in sister Comparison: Multiple priors dating back to 04/23/2020 Technique: Bilateral full-field digital 3D mammography was performed usingstandard CC and MLO projections CAD was used to evaluate this mammogram. Findings: Density: There are scattered areas of fibroglandular density-B RIGHT: No suspicious masses, groups of microcalcification or areas ofarchitectural distortion identified. Stable typically benign parenchymalasymmetries LEFT: No suspicious masses, groups of microcalcifications or areas ofarchitectural distortion identified. Stable typically benign parenchymalasymmetries IMPRESSION: : 1. No mammographic evidence of malignancy. BI-RADS Category 2 benign findings Recommendation: Routine annual screening mammography is recommended [address] [id number] Cindy De Los Santos MD IMG XR PROCEDURES Final Result * Hm Colonoscopy (08/31/2023) Colonoscopy abstract Dary mix [facility] Anatomical Region Laterality Modality Other us Historical Provider HEALTH MAINTENANCE Final Result * DXA BONE DENSITY STUDY 1+ SITS AXIAL SKEL (07/19/2023 11:46 AM EST) Anatomical Region Laterality Modality Bone Densitometr y 11/01/2022 4:51 PM EST Narrative 07/19/2023 5:28 PM EST Clinical history: menopausal/postmenopausal disorder Scans of the lumbar spine and hips were performed on a [employer] fan beam bone densitometer. Bone mineral density measurements and associated T and Z scores respectively are as follows: Lumbar Spine: L1-L4 BMD: 1.059 g/cm2 T-Score: 0.1 Z-Score: 2.4 Compared with the prior study dated 04/23/2020, the BMD reading has increased which is not statistically significant Left Proximal Femur: Neck BMD: 0.751 g/cm2 T-Score: -0.9 Z-Score: 1.1 Total BMD: 1.034 g/cm2 T-Score: 0.8 Z-Score: 2.4 Compared with standards for the young adult, lowest measured bone density places the patient in the W.H.O. normal range. IMPRESSION: IMPRESSION: Normal bone density. The NOF guidelines recommend that FDA approved medical therapies be considered in postmenopausal women and men age >50 years with a: i. Hip or vertebral (clinical or morphometric) fracture ii. T score of < -2.5 at the spine or hip iii. 10 year fracture probability by FRAX of >3% for hip fracture, or >20% for major osteoporotic fracture PLEASE NOTE: W.H.O. classification is based on lowest measured density at the spine, femoral neck, or total hip.This classification has prognostic significance when applied to post menopausal women and older men. 1) The World Health Organization defines low BMD as follows: T-score Normal at or > -1 Osteopenia < -1 and > -2.5 Osteoporosis at or < -2.5 without fractures Established osteoporosis < -2.5 with fractures Procedure Note Hortencia Auguste MD - 10/10/2023 Clinical history: menopausal/postmenopausal disorder Scans of the lumbar spine and hips were performed on a [employer] beam bone densitometer. Bone mineral density measurements and associated T and Z scoresrespectively are as follows: Lumbar Spine: L1-L4 BMD: 1.059 g/cm2 T-Score: 0.1 Z-Score: 2.4 Compared with the prior study dated 04/23/2020, the BMD reading hasincreased which is not statistically significant Left Proximal Femur: Neck BMD: 0.751 g/cm2 T-Score: -0.9 Z-Score: 1.1 Total BMD: 1.034 g/cm2 T-Score: 0.8 Z-Score: 2.4 Compared with standards for the young adult, lowest measured bone densityplaces the patient in the W.H.O. normal range. IMPRESSION: IMPRESSION: Normal bone density. The NOF guidelines recommend that FDA approved medical therapies beconsidered in postmenopausal women and men age >50 years with a: i. Hip or vertebral (clinical or morphometric) fracture ii. T score of < -2.5 at the spine or hip iii. 10 year fracture probability by FRAX of >3% for hip fracture, or >20%for major osteoporotic fracture PLEASE NOTE: W.H.O. classification is based on lowest measured density at the spine,femoral neck, or total hip.This classification has prognostic significance when applied to postmenopausal women and older men. 1) The World Health Organization defines low BMD as follows: T-score Normal at or > -1 Osteopenia < -1 and > -2.5 Osteoporosis at or < -2.5 withoutfractures Established osteoporosis < -2.5 with fractures Cindy De Los Santos MD IMG DXA PROCEDURES Final Result * Hepatitis C Screening (08/13/2014) [facility] Hepatitis C Screening Abstracted Historical Provider HEALTH MAINTENANCE Final Result from Last 3 Months or Most Recently Relevant to Health Maintenance Insurance [facility] ([facility]) MEDICARE ADVANTAGE Care Teams Icu Specialist Relationship Specialty Start Date End Date Cindy De Los Santos MD [address] [place] [address] PCP - General 06/09/00
--- OUTSIDE RECORDS SUMMARY | 2025-04-22 14:58 | XMS_ITS | Clinical Summary ---
Author Organization [facility] Address [address] [facility] [address] [place] [address] Phone Care Team Providers Care Screw Cutter Name Role Phone Cindy De Los Santos MD Primary Care Provider [phone] Allergies Active Allergy Reactions Criticality Noted Date Comments Conj Estrog-Medroxyprogest Fer Other (see comments) 05/25/2006 Medications atorvastatin (LIPITOR) 20 MG tablet Take 10 mg by mouth 1 (one) time each day 3 Active betamethasone valerate (VALISONE) 0.1 % ointment Place a pea size drop on finger tip and apply to external genitalia every night for 2 weeks, then every other day for two week, followed by twice per week for one month and then weekly 1 Active levothyroxine (SYNTHROID, LEVOTHROID) 75 MCG tablet Take 75 mcg by mouth 1 (one) time each day 3 Active aspirin (ST WENDI) 81 MG EC tablet Take 81 mg by mouth 1 (one) time each day Active Multiple Vitamin (multivitamin) tablet Take 1 tablet by mouth 1 (one) time each day Active Ascorbic Acid (vitamin C) 1000 MG tablet Take 1,000 mg by mouth 1 (one) time each day Active cholecalciferol (D3-1000) 25 MCG (1000 UT) capsule Take 1,000 Units by mouth 1 (one) time each day Active lisinopril 10 MG tablet Take 1 tablet (10 mg total) by mouth 1 (one) time each day 30 tablet 5 3 Active Active Problems Problem Noted Date Diagnosed Date Essential hypertension 03/09/2017 Family History Medical History Relation Comments Heart disease Father Hypotension Mother Relation Status Comments Father Mother Social History Tobacco Use Types Packs/Day Years Used Date Smoking Tobacco: Never Smokeless Tobacco: Never Tobacco Cessation:Counseling Given: Not Answered Alcohol Use Standard Drinks/Week Comments Not Currently 0 (1 standard drink = 0.6 oz pur e alcohol) Comments Unknown Sex and Gender Information Value Date Recorded Sex Assigned at Not on file Legal Sex Female 10:50 AM EST Gender Identity Not on file Sexual Orientation Not on file Last Filed Vital Signs Vital Sign Reading Time Taken Comments Blood Pressure 140/92 05/23/2023 3:58 PM EDT Pulse 76 05/23/2023 3:58 PM EDT Temperature - - Respiratory Rate - - Oxygen Saturation 98% 05/23/2023 3:58 PM EDT Inhaled Oxygen Concentration - - Weight 92.3 kg (203 lb 6.4 oz) 05/23/2023 3:58 P M EDT Height 152.4 cm (5') 05/23/2023 3:58 PM EDT Body Mass Index 39.72 05/23/2023 3:58 PM EDT Plan of Treatment Health Maintenance Due Date Last Done Comments Breast Cancer Screening 1950 Colorectal Cancer Screening: Annual FOBT 1999 Colorectal Cancer Screening: Colonoscopy 1999 Colorectal Cancer Screening: Sigmoidoscopy 1999 Pneumococcal Vaccine: 50+ Years (2 of 2 - PPSV23, PCV20, or PCV21) 05/25/2017 03/30/2017 Influenza Vaccine (#1) 2025 2, 06/11/2018, 08/16/2017, Additional history exists Hepatitis B Vaccine Aged Out No longe r eligible based on patient's age to complete this topic Insurance [facility] Care Teams Screw Cutter Relationship Specialty Start Date End Date Cindy De Los Santos MD PCP - General Internal Medicine 11/03/22
== END 2025-04-22 14:15 | disposition home or self-care (01) ==
LOC: HO.HMGAL 14:11
PROVIDERS: PCP Internal Medicine; Visit Provider Registered Nurse Emergency
DX: J30.89 Other allergic rhinitis (principal)
CPT/HCPCS: 95117; 95165

== ENCOUNTER 2025-05-13 09:20 | Outpatient (AMB) | payer MEDICARE, SELFPAY ==
--- OUTSIDE RECORDS SUMMARY | 2025-05-13 10:29 | XMS_ITS | Encounter Summary ---
Author Organization [facility] Address [address] [facility] [address] [place] [address] Phone Care Team Providers Care Video Games Storywriter Name Role Phone Cindy De Los Santos MD Primary Care Provider [phone] Reason for Visit * Reason Comments Med Refill Encounter Details Date Type Department Care Team (Late st Contact Info) Description 06/03/2023 Refill [facility] [address] [place] [id number] Farooq Rivera MD Social History Tobacco Use Types Packs/Day Years Used Date Smoking Tobacco: Never Smokeless Tobacco: Never Alcohol Use Standard Drinks/Week Comments Not Currently 0 (1 standard drink = 0.6 oz pur e alcohol) Comments Unknown Sex and Gender Information Value Date Recorded Sex Assigned at Not on file Legal Sex Female 10:50 AM EST Gender Identity Not on file Sexual Orientation Not on file documented as of this encounter Plan of Treatment Not on file documented as of this encounter Visit Diagnoses Not on filedocumented in this encounter Care Teams Video Games Storywriter Relationship Specialty Start Date End Date Cindy De Los Santos MD PCP - General Internal Medicine 11/03/22 documented as of this encounter
--- OUTSIDE RECORDS SUMMARY | 2025-05-13 10:29 | XMS_ITS | Clinical Summary ---
Author Organization [facility] Address [address] [facility] [address] [place] [address] Phone Care Team Providers Care Radar Systems Engineer Name Role Phone Cindy De Los Santos MD Primary Care Provider [phone] Allergies Active Allergy Reactions Criticality Noted Date [...] patient's age to complete this topic Insurance [facility] Care Teams Radar Systems Engineer Relationship Specialty Start Date End Date Cindy De Los Santos MD PCP - General Internal Medicine 11/03/22
--- OUTSIDE RECORDS SUMMARY | 2025-05-13 10:29 | XMS_ITS | Clinical Summary ---
Author Organization [address] [place] [address] [place] [phone] Phone Care Team Providers Care Research Support Specialist Name Role Phone Cindy De Los Santos MD Primary Care Provider [phone] Allergies Active Allergy Reactions Criticality Noted Date [...] obesity with BMI of 4 0.0-44.9, adult ([facility] V24, [facility] V28) 08/14/2024 Vertigo 11/03/2021 Overview (08/14/2024): Dr. jose Constipation 04/26/2018 White coat syndrome with diagnosis of hypertensi on 03/09/2017 Meningioma ([facility] V24, [facility] V28) 10/01/2015 Overview (08/14/2024): Left middle temporal [...] 9:45 AM EDT Office Visit Adult Medicine [address] [phone] Cindy De Los Santos MD [address] [place] [address] Health Maintenance Due Date Last Done Comments RSV Immunization Adult Patients (1 - Risk 60-74 years 1-dose series) 2010 Falls Risk Assessment 08/14/2022 Medicare Annual Wellness Visit 08/14/2022 Social Influencers of Health Screening 08/14/2022 Depression Screening 09/05/2024 COVID-19 Vaccine ( season) 2025 06/25/2024, 06/25/2023, 06/09/2022, Additional history exists Influenza Vaccine (#1) 2025 , 06/25/2023, 06/09/2022, [...] mg/dL LAB CHEMISTRY METHOD 12/26/2024 1:01 PM [facility] Triglycerides 143 0 - 150 mg/dL LAB CHEMISTRY METHOD 12/26/2024 1:01 PM [facility] HDL 61 >=40 mg/dL LAB CHEMISTRY METHOD 12/26/2024 1:01 PM [facility] LDL Calculated 99 0 - 100 mg/dL LAB CHEMISTRY METHOD 12/26/2024 1:01 PM [facility] VLDL Cholesterol Uriel 28.6 mg/dL LAB CHEMISTRY METHOD 12/26/2024 1:01 PM [facility] Non HDL Chol. (LDL+VLDL) 128 <145 mg/dL LAB CHEMISTRY METHOD 12/26/2024 1:01 PM [facility] Chol/HDL Ratio 3.1 0.0 - 4.4 LAB CHEMISTRY METHOD 12/26/2024 1:01 PM [facility] Blood Venous blood specimen / Unknown Venipuncture / Unknown 12/26/2024 9:05 AM EDT 12/26/2024 9:05 AM EDT us Dash THACKER LAB BLOOD ORDERABLES Fin al Result [facility] [address] [place] [address], * (ABNORMAL) Comprehensive metabolic panel (12/26/2024 9:05 AM EDT) Sodium 141 133 - 145 mmol/L LAB CHEMISTRY METHOD 12/26/2024 1:01 PM [facility] Potassium 4.2 3.5 - 5.5 mmol/L LAB CHEMISTRY METHOD 12/26/2024 1:01 PM [facility] Chloride 109 96 - 110 mmol/L LAB CHEMISTRY METHOD 12/26/2024 1:01 PM [facility] CO2 28 21 - 32 mmol/L LAB CHEMISTRY METHOD 12/26/2024 1:01 PM [facility] Anion Gap 4 3 - 11 LAB CHEMISTRY METHOD 12/26/2024 1:01 PM [facility] Glucose 111(H) 70 - 100 mg/dL LAB CHEMISTRY METHOD 12/26/2024 1:01 PM [facility] BUN 27(H) 5 - 25 mg/dL LAB CHEMISTRY METHOD 12/26/2024 1:01 PM [facility] Creatinine 0.98 0.50 - 1.10 mg/dL LAB CHEMISTRY METHOD 12/26/2024 1:01 PM [facility] eGFR 61 >=60 mL/min/1. 73m2 LAB CHEMISTRY METHOD 12/26/2024 1:01 PM [facility] Comment:Calculation based on the Chronic Kidney Disease Epidemiology Collaboration (CKD-EPI) equation refit without adjustment for race. BUN/Creatinine Ratio 27.6 LAB CHEMISTRY METHOD 12/26/2024 1:01 PM T [facility] Calcium 9.1 8.5 - 10.5 mg/dL LAB CHEMISTRY METHOD 12/26/2024 1:01 PM [facility] AST (SGOT) 14 10 - 42 unit/L LAB CHEMISTRY METHOD 12/26/2024 1:01 PM [facility] ALT (SGPT) 27 10 - 60 unit/L LAB CHEMISTRY METHOD 12/26/2024 1:01 PM [facility] Alkaline Phosphatase 66 42 - 121 unit/L LAB CHEMISTRY METHOD 12/26/2024 1:01 PM [facility] Total Protein 6.7 6.0 - 8.0 g/dL LAB CHEMISTRY METHOD 12/26/2024 1:01 PM [facility] Albumin 3.9 3.2 - 5.0 g/dL LAB CHEMISTRY METHOD 12/26/2024 1:01 PM [facility] Total Bilirubin 0.6 0.0 - 1.4 mg/dL LAB CHEMISTRY METHOD 12/26/2024 1:01 PM [facility] Blood Venous blood specimen / Unknown Venipuncture / Unknown 12/26/2024 9:05 AM EDT 12/26/2024 9:05 AM EDT us Dash THACKER LAB BLOOD ORDERABLES Fin al Result [facility] [address] [place] [address], * SCREENING MAMMOGRAPHY BI 2-VIEW BREAST INC [...] Recommendation: Routine annual screening mammography is recommended [address] [id number] Procedure Note Hortencia Auguste MD - 07/30/2024 [...] Recommendation: Routine annual screening mammography is recommended [address] [id number] Cindy De Los Santos MD IMG XR PROCEDURES Final Result * Hm Colonoscopy (08/31/2023) Colonoscopy abstract [facility] Anatomical Region Laterality Modality Other us Historical Provider HEALTH MAINTENANCE Final Result * DXA BONE DENSITY STUDY 1+ SITS AXIAL SKEL (07/19/2023 11:46 AM EST) Anatomical Region Laterality Modality Bone Densitometr y 11/01/2022 4:51 PM EST Narrative 07/19/2023 5:28 PM EST Clinical history: menopausal/postmenopausal disorder Scans of the lumbar spine and hips were performed on a [employer] fan beam bone densitometer. Bone mineral density [...] spine and hips were performed on a [employer] beam bone densitometer. Bone mineral density measurements [...] Final Result * Hepatitis C Screening (08/13/2014) [facility] Hepatitis C Screening Abstracted Historical Provider HEALTH MAINTENANCE Final Result from Last 3 Months or Most Recently Relevant to Health Maintenance Insurance [facility] MEDICARE ADVANTAGE Care Teams Research Support Specialist Relationship Specialty Start Date End Date Cindy De Los Santos MD [address] [place] [address] PCP - General 06/09/00
== END 2025-05-13 09:32 | disposition home or self-care (01) ==
LOC: HO.HMGAL 09:20
PROVIDERS: PCP Internal Medicine; Visit Provider Registered Nurse Emergency
DX: J30.89 Other allergic rhinitis (principal)
CPT/HCPCS: 95117; 95165

== ENCOUNTER 2025-06-12 09:21 | Outpatient (AMB) | payer MEDICARE, SELFPAY | END 2025-06-12 10:14 | disposition home or self-care (01) | LOC: HO.HMGAL 09:21 | PROVIDERS: PCP Internal Medicine; Visit Provider Registered Nurse Emergency | DX: J30.89 Other allergic rhinitis (principal) | CPT/HCPCS: 95117; 95165 ==

== ENCOUNTER 2025-07-03 10:06 | Outpatient (AMB) | payer MEDICARE, SELFPAY ==
--- OUTSIDE RECORDS SUMMARY | 2025-07-01 09:45 | XMS_ITS | Encounter Summary ---
Author Organization [facility] Address [address] [place] [address] Care Team Providers Care Skin Fitter Name Role Phone Cindy De Los Santos MD Primary Care Provider [phone] Reason for Referral * Consultation (Routine) - Pending Review Specialty Diagnoses / Procedures Referred By Tyler haque Referred To Contact Dermatology Diagnoses Skin lesion of face Cindy De Los Santos MD [address] [place] [phone] Phone: tel: fax: Referral ID Status Reason Start Date Expiration Date Visits Requested Visits Authorized [id number] Pending Review Specialty Services Required 07/01/2026 1 1 Reason for Visit * Reason Comments Follow-up Follow up to discuss blood work results. Patient wants to discuss aspirin 81 mg Encounter Details Date Type Department Care Team ([facility] st Contact Info) Description 07/01/2025 9:45 AM EDT Office Visit Adult Medicine [address] [phone] Cindy De Los Santos MD [address] [place] [id number] Hypothyroidism, unspecified type (Primary Dx); Pure hypercholesterolemia ; Morbid obesity with BMI of 40.0-44.9, adult (CMS/HCC V24, CMS/HCC V28); Elevated blood pressure reading; Hyperglycemia; Subconjunctival hemorrhage, unspecified laterality; Skin lesion of face Social History Tobacco Use Types Packs/Day Years Used Date Smoking Tobacco: Never Smokeless Tobacco: Never Tobacco Cessation:Counseling Given: Not Answered Alcohol Use Standard Drinks/Week Comments No 0 (1 standard drink = 0.6 oz pur e alcohol) Housing Instability Answer Date Recorde d Are you worried that in the next 2 months you may not have stable housing? No 07/01/2025 Food Access & Nutrition Answer Date Rec orded Do you have access to a vari ety of food including fruits and vegetables? Yes 07/01/2025 Access to Healthcare Answer Date Record ed Within the last 3 months, ho w many times did you visit the emergency department for your medical care? 0 07/01/2025 Health Literacy Answer Date Recorded How often do you need to hav e someone help you when you read instructions, pamphlets, or other written material from your doctor or pharmacy? Never 07/01/2025 Caregiver: How often do you need to have someone help you when you read instructions, pamphlets, or other written material from your doctor or pharmacy? Not on file 07/01/2025 Financial Risk Answer Date Recorded How hard is it for you to pa y for the very basics like food, housing, medical care, and air conditioning / heating? Not very hard 07/01/2025 Transportation Answer Date Recorded Has the lack of transportati on kept you from meetings, work, or from getting things needed for daily living? No Has the lack of transportati on kept you from medical appointments or from getting medications? No 07/01/2025 Social Isolation Answer Date Recorded How often do you feel lonely or isolated from th ose around you? Never 07/01/2025 Food Risk Answer Date Recorded Within the past 12 months we worried whether our food would run out before we got money to buy more. Never true 07/01/2025 Within the past 12 months th e food we bought just didn't last and we didn't have money to get more. Never true 07/01/2025 Dependent Care Answer Date Recorded Do you need help finding or paying for care for your loved ones. For example, child psychiatrist or elderly care for an older adult? No 07/01/2025 Education Answer Date Recorded Do you think completing more education or training, like finishing a GED, going to college, or learning a trade, would be helpful for you? No 07/01/2025 Employment and Income Answer Date Recor ded During the last four weeks, have you been actively looking for work? No 07/01/2025 Living Situation Answer Date Recorded What is your living situation? Unrecognized valu e 07/01/2025 Comments Unknown Sex and Gender Information Value Date Recorded Sex Assigned at Not on file Legal Sex Female 9:26 AM EST Gender Identity Not on file Sexual Orientation Not on file documented as of this encounter Last Filed Vital Signs Vital Sign Reading Time Taken Comments Blood Pressure 175/95 07/01/2025 9:51 AM EDT provider will re check. patient states BP goes up when she come in here Pulse 83 07/01/2025 9:51 AM EDT Temperature 36.3 C (97.3 F) 07/01/2025 9:51 AM EDT Respiratory Rate 18 07/01/2025 9:51 AM EDT Oxygen Saturation 99% 07/01/2025 9:5 1 AM EDT Inhaled Oxygen Concentration - - Weight 92.1 kg (203 lb) 07/01/2025 9:51 AM EDT Height 152.4 cm (5') 07/01/2025 9:51 AM EDT Body Mass Index 39.65 07/01/2025 9:51 AM EDT documented in this encounter Ordered Prescriptions Prescription Sig Dispense Quantity Refills Last Filled Start Date End Date tirzepatide, weight loss, (Zepbound) 2.5 mg/0.5 mL injection Inject 0.5 mL (2.5 mg total) under the skin every 7 (seven) days. 2 mL 1 07/01/2025 documented in this encounter Progress Notes * Cindy De Los Santos MD - 07/01/2025 9:45 AM EDT CHIEF COMPLAINT: Follow-up (Follow up to discuss blood work results. Patient wants to discuss aspirin 81 mg) IDENTIFIER: Indiana Torres is a 74 y.o. old female. HPI: Pt presents for evaluation of multiple medical problems. Patient developed bloodshot eye twice, during second visit episode patient saw eye doctor was diagnosed with subconjunctival hemorrhage . Patient is much concerned. She would occasionally use Motrin for treatment of her knee pain, no other bleeding. Patient monitor home blood pressure, it fluctuates but overall blood pressure less than 130. She has history of whitecoat hypertension. She is frustrated despite of her effort, she is not losing weight. She always have concern that shewould gain. Patient reported thickening of the skin under the right eye. No skin breakdown no itchiness. She denied chest pain shortness of breath, she denied excessive thirst, polyuria or polydipsia. ROS: GENERAL: Negative for malaise, significant weight loss and fever RESPIRATORY: No cough, wheezing or shortness of breath CARDIOVASCULAR: Negative for chest pain, leg swelling and palpitations, See HPI GI: Negative for abdominal discomfort, changes in bowel habits, blood in stool or black stools ENDOCRINE: Negative for cold or heat intolerance, polyuria, polydipsia and goiter, See HPI NEURO: No persistent headache, fainting, seizures, strokes, TIAs, weakness, numbness or tingling PAST MEDICAL HISTORY: Patient Active Problem List Diagnosis Date Noted Morbid obesity with BMI of 40.0-44.9, adult ([facility] V24, [place] [id number]) 08/14/2024 Vertigo 11/03/2021 Constipation 04/26/2018 White coat syndrome with diagnosis of hypertension 03/09/2017 Meningioma ([facility] V24, [place] [address]) 10/01/2015 Hypothyroidism 05/25/2006 Pure hypercholesterolemia 05/25/2006 SOCIAL HISTORY: Social History Tobacco Use Smoking status: Never Smokeless tobacco: Never Substance Use Topics Alcohol use: No FAMILY HISTORY: Family Status Relation Name Status Father at age 85 Mother at age 87 Sister Neg Hx (Not Specified) Brother Brother Alive Brother Alive Brother Alive Brother Alive Sister Sister Alive Sister Alive Daughter Alive No partnership data on file Family History[1] ACTIVE MEDICATIONS: Medications Taking[2] ALLERGIES: Conj estrog-medroxyprogest barry PHYSICAL EXAM: Blood pressure (!) 175/95, pulse 83, temperature 36.3 ??C (97.3 ??F), temperature source Temporal, resp. rate 18, height 1.524 m (60 ), weight 92.1 kg (203 lb), SpO2 99%. Body mass index is 39.65 kg/m??. BMI is greater than 25.0 (above the normal range) - see Plan APPEARANCE: Alert and in no acute distress NECK: No JVD HEART: Normal S1-S2 LUNG: clear to auscultation bilaterally ABDOMEN: Bowel sounds normoactive, no bruits, soft, non-tender, without organomegaly or palpable masses, and very obese EXTREMITIES: DJD changes No subconjunctival hemorrhage, pupil equal round reactive light. Small patch of skin thickening right face near the nose bridge LABS: Lab Results Component Value Date GLUCOSE 111 (H) 12/26/2024 CALCIUM 9.1 12/26/2024 NA 141 12/26/2024 K 4.2 12/26/2024 CO2 28 12/26/2024 CL 109 12/26/2024 BUN 27 (H) 12/26/2024 CREATININE 0.98 12/26/2024 Lab Results Component Value Date CHOL 189 12/26/2024 TRIG 143 12/26/2024 HDL 61 12/26/2024 LDLCALC 99 12/26/2024 VLDL 28.6 12/26/2024 NONHDLC 128 12/26/2024 CHOLHDL 3.1 12/26/2024 Lab Results Component Value Date TSH 2.98 12/26/2024 No results found for: HGBA1C Lab Results Component Value Date LDLCALC 99 12/26/2024 CREATININE 0.98 12/26/2024 BP Readings from Last 5 Encounters: 07/01/25 (!) 175/95 12/03/24 112/72 09/13/24 (!) 146/66 05/24/24 118/80 03/12/24 (!) 143/79 Wt Readings from Last 5 Encounters: 07/01/25 92.1 kg (203 lb) 12/03/24 92.5 kg (204 lb) 05/24/24 93.4 kg (206 lb) 03/27/24 94.3 kg (208 lb) 03/13/24 94.3 kg (208 lb) IMPRESSION: 1. Hypothyroidism, unspecified type 2. Pure hypercholesterolemia 3. Morbid obesity with BMI of 40.0-44.9, adult (CMS/HCC V24, CMS/HCC V28) 4. Elevated blood pressure reading 5. Hyperglycemia 6. Subconjunctival hemorrhage, unspecified laterality 7. Skin lesion of face PLAN: Pt presents for evaluation of multiple medical problems. Patient developed bloodshot eye twice, during second visit episode patient saw eye doctor was diagnosed with subconjunctival hemorrhage . Patient is much concerned. She would occasionally use Motrin for treatment of her knee pain, no other bleeding. Patient monitor home blood pressure, it fluctuates but overall blood pressure less than 130. She has history of whitecoat hypertension. She is frustrated despite of her effort, she is not losing weight. She always have concern that shewould gain. Patient reported thickening of the skin under the right eye. No skin breakdown no itchiness. She denied chest pain shortness of breath, she denied excessive thirst, polyuria or polydipsia. 1 discussed the benign nature of subconjunctival hemorrhage, a diagnosis patient wrote down after recent visit with ophthalmology. 2 I will refer patient to dermatology, answered patient's questions regarding potential skin cancerand treatment 3 elevated blood pressure, patient's history of whitecoat syndrome, on the other hand we discussed potential danger for persistent blood pressure elevation. I want the patient to monitor blood pressure at home. 4 hyperglycemia see below 5 discussed patient's recent laboratory studies A good cholesterol profile B normal TSH 6 patient's severe obesity is likely essential component of patient's medical issues. Discussed [employer] based blood pressure elevation hyperglycemia hypertriglyceridemia. After prolonged discussion we finally decided to try GLP-1 agent, Zepbound. Discussed my justification of doing so, potential side effects, I will provide the justification tofacilitate insurance coverage. I will arrange earlier follow-up visit. Orders Placed This Encounter Procedures Ambulatory referral to Dermatology Standing Status: Future Expiration Date: 07/01/2026 Referral Priority: Routine Referral Type: Consultation Referral Reason: Specialty Services Required Requested Specialty: Dermatology Number of Visits Requested: 1 ADDITIONAL ORDERS: AMB REFERRAL TO DERMATOLOGY Cindy De Los Santos MD on 07/01/2025 at 10:36 AM EDT [1] Family History Problem Relation Name Age of Onset Heart attack Father age 49, from [place] no details (pt smoker, may be lung [place]) Alzheimer's disease Mother Arthritis Mother Colon cancer Mother 85.00 Breast cancer Sister 84.00 Ovarian cancer Neg Hx Pancreatic cancer Neg Hx Kidney cancer Neg Hx Cancer of Small Bowel Neg Hx Uterine cancer Neg Hx [2] Outpatient Medications Marked as Taking for the 07/01/25 encounter (Office Visit) with Cindy De Los Santos MD Medication Sig Dispense Refill ascorbic acid (VITAMIN C) 1,000 mg tablet Take 1 tablet (1,000 mg total) by mouth. OTC aspirin 81 mg EC tablet Take 1 tablet (81 mg total) by mouth 1 (one) time each day. atorvastatin (LIPITOR) 20 mg tablet TAKE 1 TABLET BY MOUTH EVERY DAY 90 tablet 1 calcium carb/vit D3/minerals (CALCIUM-VITAMIN D ORAL) Take by mouth. cholecalciferol (VITAMIN D-3) 25 mcg (1,000 unit) capsule Take 1 capsule (1,000 Units total) by mouth. diclofenac (VOLTAREN) 1 % topical gel Apply 1 Dose topically See Admin Instructions. Apply 4 g to each affected area up to 4 times daily; maximum dose per joint: 16 g/day; maximum total body dose (all combined joints): 32 g/day. levothyroxine (SYNTHROID, LEVOTHROID) 75 mcg tablet TAKE 1 TABLET BY MOUTH EVERY DAY 90 tablet 1 lisinopriL (PRINIVIL,ZESTRIL) 10 mg tablet TAKE 1 TABLET BY MOUTH EVERY DAY 90 tablet 1 meclizine (ANTIVERT) 25 mg tablet TAKE 1 TABLET BY MOUTH THREE TIMES A DAY NEEDED FOR DIZZINESS 30 tablet 3 MULTIVITAMIN ORAL Take 1 tablet by mouth. documented in this encounter Plan of Treatment Upcoming Encounters Date Type Department Care Team (Late st Contact Info) Description 10/01/2025 12:00 PM EST Office Visit Adult Medicine [address] [phone] Cindy De Los Santos MD [address] [place] [phone] 01/08/2026 9:00 AM EDT Office Visit Adult Medicine [address] [phone] Cindy De Los Santos MD [address] [place] [phone] Scheduled Referrals Name Type Priority Associated Diagnoses Order Schedule Ambulatory referral to Dermatology Outpatient Referral Routine Skin lesion of face 1 Occurrences starting 07/01/2025 until 07/01/2026 documented as of this encounter Visit Diagnoses Diagnosis Hypothyroidism, unspecified type- Primary Pure hypercholesterolemia Morbid obesity with BMI of 40.0-44.9, adult ([facility] V24, [facility] V28) Elevated blood pressure reading Elevated blood pressure reading without diagnosis of hypertension Hyperglycemia Other abnormal glucose Subconjunctival hemorrhage, unspecified laterality Skin lesion of face Unspecified disorder of skin and subcutaneous tissue documented in this encounter Additional Health Concerns Assessment Noted Time PHQ-9 Depression Total Score: 0 07/01/20 25 10:02 AM EDT A fall risk assessment has been complete d for the patient 07/01/2025 10:02 AM EDT documented as of this encounter Care Teams Skin Fitter Relationship Specialty Start Date End Date Cindy De Los Santos MD [address] [place] [address] PCP - General 06/09/00 documented as of this encounter
--- OUTSIDE RECORDS SUMMARY | 2025-07-03 12:18 | XMS_ITS | Clinical Summary ---
Author Organization [address] [place] [address] [place] [phone] Phone Care Team Providers Care Skidder Operator Name Role Phone Cindy De Los Santos MD Primary Care Provider [phone] Allergies Active Allergy Reactions Criticality Noted Date [...] tablet (1,000 mg total) by mouth. OTC Active MULTIVITAMIN ORAL Take 1 tablet by [...] EVERY DAY 90 tablet 1 5 Active tirzepatide, weight loss, (Zepbound) 2.5 mg/0.5 mL injection Inject 0.5 mL (2.5 mg total) under the skin every 7 (seven) days. 2 mL 1 5 Active Active Problems Problem Noted Date Diagnosed Date Morbid obesity with BMI of 4 0.0-44.9, adult ([facility] V24, [facility] V28) 08/14/2024 Vertigo 11/03/2021 Overview (08/14/2024): Dr. jose Constipation 04/26/2018 White coat syndrome with diagnosis of hypertensi on 03/09/2017 Meningioma ([facility] V24, [facility] V28) 10/01/2015 Overview (08/14/2024): Left middle temporal fossa- Dr. Jose Hypothyroidism 05/25/2006 Pure hypercholesterolemia 05/25/2006 Encounters Date Type Department Care Team Description 07/01/2025 9:45 AM EDT Office Visit Adult Medicine [address] [id number] Cindy De Los Santos MD Hypothyroidism, unspecified type (Primary Dx); Pure hypercholesterolemia; Morbid obesity with BMI of 40.0-44.9, adult ([facility] V24, [facility] V28); Elevated blood pressure reading; Hyperglycemia; Subconjunctival hemorrhage, unspecified laterality; Skin lesion of face from Last 3 Months Immunizations Immunization Administration Dates Next Due H1N1 Inj Preservative Free 08/18/2009 Influenza Quadravalent, MDCK , 0.5ml, with preservative (Flucelvax) 6mo and older 08/16/2017 Influenza trivalent, 0.5mL ( Fluad) 65yo and older 06/07/2025,06/09/2022,06/05/2021,2018,06/11/2018 Influenza trivalent, 0.5mL, preservative free (Fluarix; FluLaval; [...] Record ed Within the last 3 months, rosi [place] many times did you visit the emergency [...] care for your loved ones. For example, early childhood specialist or elderly care for an older adult? [...] Mass Index 39.65 07/01/2025 9:51 AM EDT Plan of Treatment Upcoming Encounters Date Type Department Care Team (Late st Contact Info) Description 10/01/2025 12:00 PM EST Office Visit [address] [phone] Cindy De Los Santos MD [address] [place], [place] 01/08/2026 9:00 AM EDT Office Visit [address] [phone] Cindy De Los Santos MD [address] [place], [place] Health Maintenance Due Date Last Done Comments RSV Immunization Adult Patients (1 - Risk 50-74 years 1-dose series) 2000 Medicare Annual Wellness Visit 08/14/2022 COVID-19 Vaccine ( season) 2025 06/07/2025, 06/25/2024, 06/25/2023, Additional history exists Hypertension/CHF/CAD Annual BMP Blood Test 12/26/2025 12/26/2024, 05/29/2024, 05/29/2024 Breast Cancer Screening 06/27/2026 06/27/20, 06/27/2024, 05/07/2023, Additional history exists Falls Risk Assessment 07/01/2026 07/01/2025 Social Influencers of Health Screening 07/01/2026 07/01/2025 Colorectal Cancer Screening: Colonoscopy 08/31/2028 08/31/2023 Cholesterol Screening (Lipid Panel) 12/26/2029 12/26/2024, 05/29/2024, 05/29/2024, Additional history exists Osteoporosis Screening (Bone Density Screening) 07/19/2033 07/19/2023, 04/23/2020, 12/23/2016 DTaP,Tdap,and Td Vaccines (7 - Td or Tdap) 08/02/2033 08/02/2023, 04/01/2011, 05/31/2005, Additional history exists Hepatitis C Screening Completed 08/13/2014 Pneumococcal Vaccine: 50+ Years Completed 08/02/2023, 03/30/2017 Zoster Vaccines Completed 01/19/2024, 04/2023, 05/29/2014 Influenza Vaccine Completed 06/07/2025, , 06/25/2023, Additional history exists Depression Screening Completed 07/01/2025 HIB Vaccines Aged Out No longer eligi [...] mg/dL LAB CHEMISTRY METHOD 12/26/2024 1:01 PM EDT [facility] Triglycerides 143 0 - 150 mg/dL LAB CHEMISTRY METHOD 12/26/2024 1:01 PM EDT [facility] HDL 61 >=40 mg/dL LAB CHEMISTRY METHOD 12/26/2024 1:01 PM EDT [facility] LDL Calculated 99 0 - 100 mg/dL LAB CHEMISTRY METHOD 12/26/2024 1:01 PM EDT [facility] VLDL Cholesterol Uriel 28.6 mg/dL LAB CHEMISTRY METHOD 12/26/2024 1:01 PM EDT [facility] Non HDL Chol. (LDL+VLDL) 128 <145 mg/dL LAB CHEMISTRY METHOD 12/26/2024 1:01 PM [facility] Chol/HDL Ratio 3.1 0.0 - 4.4 LAB CHEMISTRY METHOD 12/26/2024 1:01 PM [facility] Blood Venous blood specimen / Unknown Venipuncture / Unknown 12/26/2024 9:05 AM EDT 12/26/2024 9:05 AM EDT us Dash THACKER LAB BLOOD ORDERABLES Fin al Result [facility] [address] [place] [address], [place] [phone] * (ABNORMAL) Comprehensive metabolic panel (12/26/2024 9:05 AM EDT) Sodium 141 133 - 145 mmol/L LAB CHEMISTRY METHOD 12/26/2024 1:01 PM EDT [facility] Potassium 4.2 3.5 - 5.5 mmol/L LAB CHEMISTRY METHOD 12/26/2024 1:01 PM [facility] Chloride 109 96 - 110 mmol/L LAB CHEMISTRY METHOD 12/26/2024 1:01 PM [facility] CO2 28 21 - 32 mmol/L LAB CHEMISTRY METHOD 12/26/2024 1:01 PM [facility] Anion Gap 4 3 - 11 LAB CHEMISTRY METHOD 12/26/2024 1:01 PM [facility] Glucose 111(H) 70 - 100 mg/dL LAB CHEMISTRY METHOD 12/26/2024 1:01 PM [facility] BUN 27(H) 5 - 25 mg/dL LAB CHEMISTRY METHOD 12/26/2024 1:01 PM [facility] Creatinine 0.98 0.50 - 1.10 mg/dL LAB CHEMISTRY METHOD 12/26/2024 1:01 PM [facility] eGFR 61 >=60 mL/min/1. 73m2 LAB CHEMISTRY METHOD 12/26/2024 1:01 PM [facility] Comment:Calculation based on the Chronic Kidney Disease Epidemiology Collaboration (CKD-EPI) equation refit without adjustment for race. BUN/Creatinine Ratio 27.6 LAB CHEMISTRY METHOD 12/26/2024 1:01 PM [facility] Calcium 9.1 8.5 - 10.5 mg/dL LAB CHEMISTRY METHOD 12/26/2024 1:01 PM [facility] AST (SGOT) 14 10 - 42 unit/L LAB CHEMISTRY METHOD 12/26/2024 1:01 PM [facility] ALT (SGPT) 27 10 - 60 unit/L LAB CHEMISTRY METHOD 12/26/2024 1:01 PM [facility] Alkaline Phosphatase 66 42 - 121 unit/L LAB CHEMISTRY METHOD 12/26/2024 1:01 PM [facility] Total Protein 6.7 6.0 - 8.0 g/dL LAB CHEMISTRY METHOD 12/26/2024 1:01 PM EDT [facility] Albumin 3.9 3.2 - 5.0 g/dL LAB CHEMISTRY METHOD 12/26/2024 1:01 PM EDT [facility] Total Bilirubin 0.6 0.0 - 1.4 mg/dL LAB CHEMISTRY METHOD 12/26/2024 1:01 PM EDT [facility] Blood Venous blood specimen / Unknown Venipuncture / Unknown 12/26/2024 9:05 AM EDT 12/26/2024 9:05 AM EDT us Dash THACKER LAB BLOOD ORDERABLES Fin al Result [facility] [address] [place] [address], * SCREENING MAMMOGRAPHY BI 2-VIEW BREAST INC [...] Recommendation: Routine annual screening mammography is recommended [facility] [address] [place] [address] Procedure Note Hortencia Auguste MD - 07/30/2024 [...] Recommendation: Routine annual screening mammography is recommended [facility] [address] [place] [address] Cindy De Los Santos MD IMG XR PROCEDURES Final Result * Colonoscopy (08/31/2023) Colonoscopy abstract Dary mix sierra Anatomical Region Laterality Modality Other Historical Provider [facility] Final Result * DXA BONE DENSITY STUDY 1+ SITS AXIAL SKEL (07/19/2023 11:46 AM EST) Anatomical Region Laterality Modality Bone Densitometr y 11/01/2022 4:51 PM EST Narrative 07/19/2023 5:28 PM EST Clinical history: menopausal/postmenopausal disorder Scans of the lumbar spine and hips were performed on a [employer] fan beam bone densitometer. Bone mineral density [...] spine and hips were performed on a [employer] beam bone densitometer. Bone mineral density measurements [...] with fractures Cindy De Los Santos MD IM DXA PROCEDURES Final Result * Hepatitis C Screening (08/13/2014) [facility] Hepatitis C Screening Abstracted Historical Provider HEALTH MAINTENANCE Final Result from Last 3 Months or Most Recently Relevant to Health Maintenance Insurance [facility] MEDICARE ADVANTAGE Care Teams Skidder Operator Relationship Specialty Start Date End Date Cindy De Los Santos MD [address] [place], [place] [phone] PCP - General 06/09/00
== END 2025-07-03 10:07 | disposition home or self-care (01) ==
LOC: HO.HMGAL 10:06
PROVIDERS: PCP Internal Medicine; Visit Provider Registered Nurse Emergency
DX: J30.89 Other allergic rhinitis (principal)
CPT/HCPCS: 95117; 95165

== ENCOUNTER 2025-07-24 10:06 | Outpatient (AMB) | payer MEDICARE, SELFPAY ==
--- OUTSIDE RECORDS SUMMARY | 2025-07-24 19:05 | XMS_ITS | Encounter Summary ---
Author Organization [facility] Address [address] [place] [address] Care Team Providers Care Cigarette Paper Tester Name Role Phone Cindy De Los Santos MD Primary Care Provider [phone] Reason for Visit * Reason Onset Date Comments Cough 08/24/2019 Provider Call Back 08/24/2019 Encounter Details Date Type Department Care Team Description 08/24/2019 Telephone Adult Medicine [facility] [address] [place] [phone] Cindy De Los Santos MD [address] [place] [phone] Cough; Provider Call Back Social History Tobacco Use Types Packs/Day Years Used Date Smoking Tobacco: Never Smokeless Tobacco: Never Alcohol Use Standard Drinks/Week Comments No 0 (1 standard drink = 0.6 oz pur e alcohol) Sex Assigned at Date Recorded Not on file Job Start Date Occupation Industry Not on file Not on file Not on file documented as of this encounter Miscellaneous Notes * Telephone Encounter - Kathryn Felipe - 08/27/2019 11:11 AM EST Appt booked 08/27/19 * Telephone Encounter - Melani Weiss R.N. - 08/24/2019 1:41 PM EST Pt has a cough, tickle in her throat , she is on lisinopril and asks if this could be causing her cough No chest wall pain with deep breath and cough, denies SOB, able to speak in full sentences and has no audible wheezing, using home care as directed with no relief, cough is non productive for Sputum,denies fever (has not taken temp) able to take PO with no difficulty, denies N/V/D, Advised home care following the cough Protocol. RN reinforced telephone consultation and advice. Reviewed with the patient the signs and symptoms to watch for that would require immediate attention. If symptoms change, worsen or increase in intensity, to call back immediately. Message to dr De Los Santos * Telephone Encounter - Anyi Denny M.A. - 08/24/2019 1:17 PM EST Please triage pt was seen 08/22/[address] De Los Santos pt is asking for rx for cough * Telephone Encounter - Bernice Kerr - 08/24/2019 12:57 PM EST Caller requesting call back from provider: Is the caller the patient? YES If caller is not the patient, what is the callers name? Callers relationship to patient? If person calling is not the patient themselves, is there a verbal release in FYI or permanent comments for this person: Reason for call back: Patient is asking if Dr. De Los Santos can recommend something for her cough. Patient states he is aware of the cough, she saw him on 08/22. Patient can't sleep due to the coughing. Caller offered to speak with the nurse for assistance: YES Response: Patient offered to speak with nurse for assistance and patient agreed. Message forwarded to nurse. documented in this encounter Plan of Treatment Not on file documented as of this encounter Visit Diagnoses Not on filedocumented in this encounter Care Teams Cigarette Paper Tester Relationship Specialty Start Date End Date Cindy De Los Santos MD [address] [place] [id number] PCP - General 06/09/00 documented as of this encounter
--- OUTSIDE RECORDS SUMMARY | 2025-07-24 19:05 | XMS_ITS | Encounter Summary ---
Author Organization [facility] Address [address] [place] [address] Care Team Providers Care Shorthand Reporter Name Role Phone Cindy De Los Santos MD Primary Care Provider [phone] Encounter Details Date Type Department Care Team Description 05/25/2023 Orders Only Adult Medicine [address] [phone] Cindy De Los Santos MD [address] [place] [phone] White coat syndrome with diagnosis of hypertension (Primary Dx) Social History Tobacco Use Types Packs/Day Years Used Date Smoking Tobacco: Never Smokeless Tobacco: Never Alcohol Use Standard Drinks/Week Comments No 0 (1 standard drink = 0.6 oz pur e alcohol) Sex Assigned at Date Recorded Not on file Job Start Date Occupation Industry Not on file Not on file Not on file COVID-19 Exposure Response Date Recorded In the last 10 days, have yo u been in contact with someone who was confirmed or suspected to have Coronavirus/COVID-19? No / Unsure 05/07/2023 9:17 AM EDT documented as of this encounter Plan of Treatment Not on file documented as of this encounter Visit Diagnoses Diagnosis White coat syndrome with diagnosis of hypertension- Primary documented in this encounter Care Teams Shorthand Reporter Relationship Specialty Start Date End Date Cindy De Los Santos MD [address] [place] [phone] PCP - General 06/09/00 documented as of this encounter
--- OUTSIDE RECORDS SUMMARY | 2025-07-24 19:05 | XMS_ITS | Encounter Summary ---
Author Organization [facility] Address [address] [place] [address] Care Team Providers Care High Pressure Kettle Operator Name Role Phone Cindy De Los Santos MD Primary Care Provider [phone] Encounter Details Date Type Department Care Team Description 08/15/2012 Upholstery Mechanic Report Medical Records [address] [place] [address] Thomas Stallworth Social History Tobacco Use Types Packs/Day Years [...] on filedocumented in this encounter Care Teams High Pressure Kettle Operator Relationship Specialty Start Date End Date Cindy De Los Santos MD [address] [place] [phone] PCP - General 06/09/00 documented as of this encounter
--- OUTSIDE RECORDS SUMMARY | 2025-07-24 19:05 | XMS_ITS | Clinical Summary ---
Author Organization [facility] Address [address] [facility] [address] [place] [address] Phone Care Team Providers Care Paramedic Name Role Phone Cindy De Los Santos MD Primary Care Provider [phone] Allergies Active Allergy Reactions Criticality Noted Date [...] patient's age to complete this topic Insurance [facility] Care Teams Paramedic Relationship Specialty Start Date End Date Cindy De Los Santos MD PCP - General Internal Medicine 11/03/22
--- OUTSIDE RECORDS SUMMARY | 2025-07-24 19:05 | XMS_ITS | Encounter Summary ---
Author Organization [facility] Address [address] [place] [address] Care Team Providers Care Radio Station Manager Name Role Phone Cindy De Los Santos MD Primary Care Provider [phone] Encounter Details Date Type Department Care Team Description 05/27/2015 Release of Information Medical Records [address] [place] [address] Abstract, Provider Social History Tobacco Use Types Packs/Day Years [...] on filedocumented in this encounter Care Teams Radio Station Manager Relationship Specialty Start Date End Date Cindy De Los Santos MD [address] [place] [phone] PCP - General 06/09/00 documented as of this encounter
--- OUTSIDE RECORDS SUMMARY | 2025-07-24 19:05 | XMS_ITS | Encounter Summary ---
Author Organization [facility] Address [address] [place] [address] Care Team Providers Care Multiskill Operator Name Role Phone Cindy De Los Santos MD Primary Care Provider [phone] Encounter Details Date Type Department Care Team Description 11/03/2020 Refill Adult Medicine [address] [phone] Cindy De Los Santos MD [address] [place] [address] [phone] Social History Tobacco Use Types Packs/Day Years [...] encounter Miscellaneous Notes * Telephone Encounter - Anyi Denny M.A. - 11/03/2020 1:27 PM EST Lab Results Component Value Date TSH 3.35 08/25/2020 Pending appt 11/24/20 * Telephone Encounter - Nicole Sheikh - 11/03/2020 12:27 PM EST Patient would like script to be: E-PRESCRIBED/FAXED TO PHARMACY WHEN WAS THE PATIENT'S LAST APPOINTMENT IN ADULT MEDICINE? 08/25/20 WHEN WAS THE LAST TIME THE PATIENT SAW THEIR PCP? Same as above Does patient have an upcoming appointment? Yes 11/25/19 (THE MEDICATION REQUESTED IS ON THE MED LIST ABOVE) All of the medications requested were on the CURRENT MEDS list Did you check the Pharmacy information above?: YES Patient wants: 30 -day supply Is this a mail order prescription request ? NO If the refill is from a FAXED refill request what is the RX # listed on the fax? N/A Patients current insurance carrier is: Payor: [facility]/MEDICARE PPO / Plan: [facility] MDCR-ADV PPO $20/$40 [place] / Product Type: MEDICARE [id number] documented in this encounter Plan of Treatment Not on file documented as of this encounter Visit Diagnoses Diagnosis Abnormal CXR Other nonspecific abnormal finding of lung field Hematochezia Blood in stool Constipation, unspecified constipation type Hypothyroidism, unspecified type Pure hypercholesterolemia Essential hypertension Unspecified essential hypertension documented in this encounter Care Teams Multiskill Operator Relationship Specialty Start Date End Date Cindy De Los Santos MD [address] [place] [phone] PCP - General 06/09/00 documented as of this encounter
--- OUTSIDE RECORDS SUMMARY | 2025-07-24 19:05 | XMS_ITS | Encounter Summary ---
Author Organization [facility] Address [address] [place] [address] Care Team Providers Care Lens Marker Name Role Phone Cindy De Los Santos MD Primary Care Provider [phone] Encounter Details Date Type Department Care Team Description 08/31/2023 Orders Only Medical Records [address] [place] [address] Tiago Sanders MD [address] [place] [address] [place] [id number] Social History Tobacco Use Types Packs/Day Years [...] on file documented as of this encounter Procedures Procedure Name Priority Date/Time Associated Diagnosis Comments OUTSIDE COLONOSCOPY Routine 08/31/2023 documented in this encounter Results * OUTSIDE COLONOSCOPY (08/31/2023) Tiago Sanders MD RADIOLOGY documented in this encounter Visit Diagnoses Not on filedocumented in this encounter Care Teams Lens Marker Relationship Specialty Start Date End Date Cindy De Los Santos MD [address] [place] [address] PCP - General 06/09/00 documented as of this encounter
--- OUTSIDE RECORDS SUMMARY | 2025-07-24 19:05 | XMS_ITS | Encounter Summary ---
Author Organization [facility] Address [address] [facility] [address] [place] [address] Phone Care Team Providers Care Liaison Planner Name Role Phone Cindy De Los Santos MD Primary Care Provider [phone] Reason for Visit * Reason Comments Med Refill Encounter Details Date Type Department Care Team (Late st Contact Info) Description 06/03/2023 Refill [facility] [address] [place] [phone] Farooq Rivera MD Social History Tobacco Use [...] on filedocumented in this encounter Care Teams Liaison Planner Relationship Specialty Start Date End Date Cindy De Los Santos MD PCP - General Internal Medicine 11/03/22 documented as of this encounter
--- OUTSIDE RECORDS SUMMARY | 2025-07-24 19:05 | XMS_ITS | Encounter Summary ---
Author Organization [facility] Address [address] [place] [address] Care Team Providers Care Radio Performer Name Role Phone Cindy De Los Santos MD Primary Care Provider [phone] Encounter Details Date Type Department Care Team Description 09/02/2023 Orders Only Medical Records [address] [place] [address] Tiago Sanders MD [address] [place] [address] [place] [phone] Social History Tobacco Use Types Packs/Day Years Used Date Smoking Tobacco: Never Smokeless Tobacco: Never Alcohol Use Standard Drinks/Week Comments No 0 (1 standard drink = 0.6 oz pur e alcohol) Sex Assigned at Date Recorded Not on file Job Start Date Occupation Industry Not on file Not on file Not on file documented as of this encounter Progress Notes * Roselia Schwarz M.A. - 09/14/2023 9:57 AM EST Jeanne, Please sign off for Dr Sanders. Hard report copy printed and on his desk to sign off. Thanks Keyanna documented in this encounter Plan of Treatment Not on file documented as of this encounter Procedures Procedure Name Priority Date/Time Associated Diagnosis Comments OUTSIDE PATHOLOGY Routine 08/31/2023 documented in this encounter Results * OUTSIDE PATHOLOGY (08/31/2023) Tiago Sanders MD OUTSIDE LAB documented in this encounter Visit Diagnoses Not on filedocumented in this encounter Care Teams Radio Performer Relationship Specialty Start Date End Date Cindy De Los Santos MD [address] [place] [phone] PCP - General 06/09/00 documented as of this encounter
--- OUTSIDE RECORDS SUMMARY | 2025-07-24 19:05 | XMS_ITS | Encounter Summary ---
Author Organization [facility] Address [address] [place] [address] Care Team Providers Care Auto Travel Counselor Name Role Phone Cindy De Los Santos MD Primary Care Provider Reason for Visit * Reason Onset Date Comments Medication Problem 07/08/2025 Encounter Details Date Type Department Care Team ([facility] Contact Info) Description 07/08/2025 Telephone Adult Medicine [facility] [address] [place] [phone] Cindy De Los Santos MD [address] [place] [address] Social History Tobacco Use Types Packs/Day Years [...] your loved ones. For example, early childhood or elderly care for an older adult? [...] on file documented as of this encounter Ordered Prescriptions Prescription Sig Dispense Quantity Refills Last Filled Start Date End Date tirzepatide (Mounjaro) 2.5 mg/0.5 mL injection Inject 0.5 mL (2.5 mg total) under the skin every 7 (seven) days. 2 mL 3 07/24/2025 documented in this encounter Progress Notes * Taniya Mckinney MA - 07/23/2025 2:36 PM EST Patient calling back. Insurance will cover the following medications: Mounjaro, Ozempic, Trulicity,Wegovy and Saxenda. * Suzan Carrillo - 07/19/2025 3:20 PM EST Patient calling back. Insurance will cover the following medications: Mounjaro, Ozempic, Trulicity,Wegovy and Saxenda. Please review and call patient at [phone]. * Taniya Mckinney MA - 07/18/2025 4:00 PM EST Spoke to pt and advised her to call her insurance company and verify with them what will be the alternative they will cover. Once she verifies with her insurance she can then call us with the Rx medication name and we will place a request and review from Dr. De Los Santos. * Dione Peacock - 07/08/2025 12:53 PM EST Medication Problem: What is the name of the medication patient is having a problem with?: tripeptide, weight loss, (Zepbound) 2.5 mg/0.5 mL injection What is the problem?: THE MEDICATION WILL COST $900.00 Who is calling about the problem? : The patient Is this a NEW medication?: yes How long has the patient been taking this medication? 07/01/2025 Who prescribed this medication for the patient? DR DE LOS SANTOS Who is patients PCP?: Cindy De Los Santos MD Payor: [facility] MEDICARE ADVANTAGE / Plan: [facility] MEDIBLUE / Product Type: *No Product type* / documented in this encounter Plan of Treatment Upcoming Encounters Date Type Department Care Team (Late st Contact Info) Description 10/01/2025 12:00 PM EST Office Visit [place] Medicine [facility] [address] [place] [address] Cindy De Los Santos MD [address] [place] [address] 01/08/2026 9:00 AM EDT Office Visit Adult Medicine [facility] [address] [place] [address] Cindy De Los Santos MD [address] [place], [place] documented as of this encounter Visit Diagnoses Not on filedocumented in this encounter Discontinued Medications Medication Sig Discontinue Reason Start Date End Da te tirzepatide, weight loss, (Zepbound) 2.5 mg/0.5 mL injection Inject 0.5 mL (2.5 mg total) under the skin every 7 (seven) days. 07/01/2025 07/24/2025 documented as of this encounter Additional Health Concerns Assessment Noted Time PHQ-9 Depression Total Score: 0 07/01/20 25 10:02 AM EDT A fall risk assessment has been complete d for the patient 07/01/2025 10:02 AM EDT documented as of this encounter Care Teams Auto Travel Counselor Relationship Specialty Start Date End Date Cindy De Los Santos MD [address] [place] [address] PCP - General 06/09/00 documented as of this encounter
--- OUTSIDE RECORDS SUMMARY | 2025-07-24 19:05 | XMS_ITS | Encounter Summary ---
Author Organization [facility] Address [address] [place] [address] Care Team Providers Care Credit Operations Specialist Name Role Phone Cindy De Los Santos MD Primary Care Provider [phone] Reason for Visit * Reason Onset Date Comments refill request 03/26/2020 Encounter Details Date Type Department Care Team Description 03/26/2020 Refill Adult Medicine - [address] [address] Cindy De Los Santos MD [address] [place] [address] refill request Social History Tobacco Use Types Packs/Day Years [...] encounter Miscellaneous Notes * Telephone Encounter - Nicole Valadez M.A. - 03/26/2020 2:13 PM EDT Last office visit 03/13/20 Lab Results Component Value Date NA 142 02/10/2020 K 4.5 02/10/2020 CO2 28 02/10/2020 CL 109 02/10/2020 BUN 22 02/10/2020 CREAT 0.96 02/10/2020 GLU 95 02/10/2020 CA 8.9 02/10/2020 GFR 58 02/10/2020 * Telephone Encounter - Angelica Soto - 03/26/2020 12:24 PM EDT Patient would like script to be: E-PRESCRIBED/FAXED TO PHARMACY WHEN WAS THE PATIENT'S LAST APPOINTMENT IN ADULT MEDICINE? 03/13/20 WHEN WAS THE LAST TIME THE PATIENT SAW THEIR PCP? Same as above Does patient have an upcoming appointment? No-patient refused appointment, will call back to book appointment (THE MEDICATION REQUESTED IS ON THE MED [...] N/A Patients current insurance carrier is: Payor: [facility]/MEDICARE PPO / Plan: [facility] MDCR-ADV PPO $20/$40 [place] / Product Type: MEDICARE [id number] documented in this encounter Plan of Treatment Not on file documented as of this encounter Visit Diagnoses Diagnosis Abnormal CXR Other nonspecific abnormal finding of lung field Hematochezia Blood in stool Constipation, unspecified constipation type Hypothyroidism, unspecified type Pure hypercholesterolemia Essential hypertension Unspecified essential hypertension documented in this encounter Care Teams Credit Operations Specialist Relationship Specialty Start Date End Date Cindy De Los Santos MD [address] [place] [address] PCP - General 06/09/00 documented as of this encounter
--- OUTSIDE RECORDS SUMMARY | 2025-07-24 19:05 | XMS_ITS | Encounter Summary ---
Author Organization [facility] Address [address] [place] [address] Care Team Providers Care Microelectronics Assembler Name Role Phone Cindy De Los Santos MD Primary Care Provider [phone] Reason for Visit * Reason Comments E-prescribe Rx Request Encounter Details Date Type Department Care Team Description 03/24/2018 Refill Adult Medicine [facility] [address] [place] [address] [facility] [address] [place] [address] E-prescribe Rx Request Social History Tobacco Use Types Packs/Day Years [...] encounter Miscellaneous Notes * Telephone Encounter - Roselia [place], RamyaMMichelaA. - 03/24/2018 10:24 AM EDT Lab Results Component Value Date NA 143 03/13/2017 K 4.3 03/13/2017 CO2 26.6 03/13/2017 CL 102 03/13/2017 BUN 24 03/13/2017 CREAT 1.0 03/13/2017 GLU 102 03/13/2017 CA 9.7 03/13/2017 GFR 59 03/13/2017 * Telephone Encounter - Charu Sol - 03/24/2018 8:41 AM EDT Patient would like script to be: E-PRESCRIBED/FAXED TO PHARMACY WHEN WAS THE PATIENT'S LAST APPOINTMENT IN ADULT MEDICINE? 03/05/18 WHEN WAS THE LAST TIME THE PATIENT SAW THEIR PCP? 02/26/17 Does patient have an upcoming appointment? No-patient will call back to book appointment (THE [...] N/A Patients current insurance carrier is: Payor: [employer] / Plan: PPO $20 [place] [id number] / ProductType: PPO [id number] documented in this encounter Plan of Treatment Not on file documented as of this encounter Visit Diagnoses Not on filedocumented in this encounter Care Teams Microelectronics Assembler Relationship Specialty Start Date End Date Cindy De Los Santos MD [address] [place] [address] PCP - General 06/09/00 documented as of this encounter
--- OUTSIDE RECORDS SUMMARY | 2025-07-24 19:05 | XMS_ITS | Encounter Summary ---
Author Organization [facility] Address [address] [place] [address] Care Team Providers Care Park Landscape Architect Name Role Phone Cindy De Los Santos MD Primary Care Provider [phone] Reason for Visit * Reason Comments E-prescribe Rx Request Encounter Details Date Type Department Care Team Description 04/09/2023 Refill Adult Medicine [address] [phone] Cindy De Los Santos MD [address] [place] [address] [phone] E-prescribe Rx Request Social History Tobacco Use [...] encounter Miscellaneous Notes * Telephone Encounter - Leydi Benitez M.A. - 04/11/2023 11:08 AM EDT Last office visit 11/01/22 Next office visit 05/02/23 Lab Results Component Value Date CHOL 174 08/03/2021 LDL 85 08/03/2021 HDL 52 08/03/2021 TRIG 186 08/03/2021 SGOT 17 11/10/2021 SGPT 25 11/10/2021 Do you want to order new lipid labs for prior to visit? documented in this encounter Plan of Treatment Not on file documented as of this encounter Visit Diagnoses Not on filedocumented in this encounter Care Teams Park Landscape Architect Relationship Specialty Start Date End Date Cindy De Los Santos MD [address] [place] [address] PCP - General 06/09/00 documented as of this encounter
--- OUTSIDE RECORDS SUMMARY | 2025-07-24 19:05 | XMS_ITS | Encounter Summary ---
Author Organization [facility] Address [address] [place] [address] Care Team Providers Care Contract Attorney Name Role Phone Cindy De Los Santos MD Primary Care Provider [phone] Reason for Visit * Reason Comments E-prescribe Rx Request Encounter Details Date Type Department Care Team Description 12/30/2019 Refill Adult Medicine [facility] [address] [place] [address] [facility] [address] [place] [address] E-prescribe Rx Request Social History Tobacco Use [...] Telephone Encounter - Anyi Denny M.A. - 12/31/2019 5:20 PM EDT Lab Results Component Value Date NA 142 11/26/2018 K 4.5 11/26/2018 CO2 27 11/26/2018 CL 108 11/26/2018 BUN 17 11/26/2018 CREAT 0.89 11/26/2018 GLU 97 11/26/2018 CA 9.1 11/26/2018 GFR > 60 11/26/2018 Pending ov with pcp 03/13/2020 * Telephone Encounter - Faby Pruitt - 12/31/2019 2:02 PM EDT Patient would like script to be: E-PRESCRIBED/FAXED TO PHARMACY WHEN WAS THE PATIENT'S LAST APPOINTMENT IN ADULT MEDICINE? 10-25-19 WHEN WAS THE LAST TIME THE PATIENT SAW THEIR PCP? 08-22-19 Does patient have an upcoming appointment? Yes 03-13-20 (THE MEDICATION REQUESTED IS ON THE MED LIST ABOVE) All of the medications requested were on the CURRENT MEDS list Did you check the Pharmacy information above?: YES Patient wants: 90 -day supply Is this a mail order prescription request ? NO If the refill is from a FAXED refill request what is the RX # listed on the fax? N/A Patients current insurance carrier is: Payor: [facility]/MEDICARE PPO / Plan: [facility] MDCR-ADV PPO $20/$40 [place] / Product Type: MEDICARE [id number] documented in this encounter Plan of Treatment Not on file documented as of this encounter Visit Diagnoses Diagnosis Abnormal CXR Other nonspecific abnormal finding of lung field Hematochezia Blood in stool Constipation, unspecified constipation type Hypothyroidism, unspecified type Pure hypercholesterolemia Essential hypertension Unspecified essential hypertension documented in this encounter Care Teams Contract Attorney Relationship Specialty Start Date End Date Cindy De Los Santos MD [address] [place] [phone] PCP - General 06/09/00 documented as of this encounter
--- OUTSIDE RECORDS SUMMARY | 2025-07-24 19:05 | XMS_ITS | Encounter Summary ---
Author Organization [facility] Address [address] [place] [address] Care Team Providers Care Driver'S License Reviewing Officer Name Role Phone Cindy De Los Santos MD Primary Care Provider [phone] Encounter Details Date Type Department Care Team Description 11/29/2019 Orders Only Radiology - [address] [phone] Cindy De Los Santos MD [address] [place] [address] [phone] Social History Tobacco Use Types Packs/Day Years [...] on filedocumented in this encounter Care Teams Driver'S License Reviewing Officer Relationship Specialty Start Date End Date Cindy De Los Santos MD [address] [place] [phone] PCP - General 06/09/00 documented as of this encounter
--- OUTSIDE RECORDS SUMMARY | 2025-07-24 19:05 | XMS_ITS | Encounter Summary ---
Author Organization [facility] Address [address] [place] [address] Care Team Providers Care Batch Freezer Name Role Phone Cindy De Los Santos MD Primary Care Provider [phone] Encounter Details Date Type Department Care Team Description 08/09/2018 Telephone Gastroenterology - [address] [phone] Chin Holley MD Social History Tobacco Use Types Packs/Day [...] on filedocumented in this encounter Care Teams Batch Freezer Relationship Specialty Start Date End Date Cindy De Los Santos MD [address] [place] [address] [phone] PCP - General 06/09/00 documented as of this encounter
--- OUTSIDE RECORDS SUMMARY | 2025-07-24 19:05 | XMS_ITS | Encounter Summary ---
Author Organization [facility] Address [address] [place] [address] Care Team Providers Care Copyist Name Role Phone Cindy De Los Santos MD Primary Care Provider [phone] Reason for Visit * Reason Comments APPOINTMENT Documenting Encounter Details Date Type Department Care Team Description 08/19/2003 Telephone Adult Medicine [address] [phone] Cindy De Los Santos MD [address] [place] [address] APPOINTMENT (Documenting) Social History Tobacco Use Types Packs/Day Years Used Date Smoking Tobacco: Never Assessed Sex Assigned at Date Recorded Not on file Job Start Date Occupation Industry Not on file Not on file Not on file documented as of this encounter Miscellaneous Notes * Telephone Encounter - 08/19/2003 2:31 PM ESTCALL RECEIVED. Contact: documenting Called pt, left message to call back to schedule appt as f/u to labs- non-urgent. documented in this encounter Plan of Treatment Not on file documented as of this encounter Visit Diagnoses Not on filedocumented in this encounter Care Teams Copyist Relationship Specialty Start Date End Date Cindy De Los Santos MD [address] [place] [address] PCP - General 06/09/00 documented as of this encounter
--- OUTSIDE RECORDS SUMMARY | 2025-07-24 19:05 | XMS_ITS | Encounter Summary ---
Author Organization [facility] Address [address] [place] [address] Care Team Providers Care Repairer Wood Furniture Name Role Phone Cindy De Los Santos MD Primary Care Provider [phone] Encounter Details Date Type Department Care Team Description 03/10/2023 Ambulatory Blood Pressure Monitoring Medical Records [address] [place] [address] Abstract, Provider Social History Tobacco Use Types [...] on filedocumented in this encounter Care Teams Repairer Wood Furniture Relationship Specialty Start Date End Date Cindy De Los Santos MD [address] [place] [address] [phone] PCP - General 06/09/00 documented as of this encounter
--- OUTSIDE RECORDS SUMMARY | 2025-07-24 19:05 | XMS_ITS | Clinical Summary ---
Author Organization [address] [place] [address] [place] [phone] Phone Care Team Providers Care Respiratory Care Assistant Name Role Phone Cindy De Los Santos MD Primary Care Provider [phone] Allergies Active Allergy Reactions Criticality Noted Date Comments Conj Estrog-Medroxyprogest Fer Nausea And Vomiting 05/25/2006 Other Reaction(s): Rash/Dermatitis Medications diclofenac (VOLTAREN) 1 % topical gel Apply 1 Dose topically See Admin Instructions. Apply 4 g to each affected area up to 4 times daily; maximum dose per joint: 16 g/day; maximum total body dose (all combined joints): 32 g/day. 05/24/20 24 Active ascorbic acid (VITAMIN C) 1,000 mg tablet Take 1 tablet (1,000 mg total) by mouth. OTC Active MULTIVITAMIN ORAL Take 1 tablet by mouth. Active cholecalcifero l (VITAMIN D-3) 25 mcg (1,000 unit) capsule Take 1 capsule (1,000 Units total) by mouth. Active aspirin 81 mg EC tablet Take 1 tablet (81 mg total) by mouth 1 (one) time each day. Active calcium carb/vit D3/minerals (CALCIUM-VITAM IN D ORAL) Take by mouth. Acti ve fluticasone propionate (FLONASE) 50 mcg/actuation nasal spray Administer 2 sprays into each nostril 1 (one) time each day for 14 days. Shake gently. Before first use, prime pump. After use, clean tip and replace cap. 16 g 09/13/19 25 Active meclizine (ANTIVERT) 25 mg tablet TAKE 1 TABLET BY MOUTH THREE TIMES A DAY NEEDED FOR DIZZINESS 30 tablet 3 11/27/19 25 Active lisinopriL (PRINIVIL,ZEST RIL) 10 mg tablet TAKE 1 TABLET BY MOUTH EVERY DAY 90 tablet 1 05/28/20 25 Active atorvastatin (LIPITOR) 20 mg tablet TAKE 1 TABLET BY MOUTH EVERY DAY 90 tablet 1 07/08/20 25 Active levothyroxine (SYNTHROID, LEVOTHROID) 75 mcg tabletIndicati ons:Melena,Abn ormal findings on diagnostic imaging of other specified body structures TAKE 1 TABLET BY MOUTH EVERY DAY 90 tablet 1 07/08/20 25 Active tirzepatide (Mounjaro) 2.5 mg/0.5 mL injection Inject 0.5 mL (2.5 mg total) under the skin every 7 (seven) days. 2 mL 3 07/24/20 25 Active atorvastatin (LIPITOR) 20 mg tablet TAKE 1 TABLET BY MOUTH EVERY DAY 90 tablet 1 01/08/20 25 025 Discontinued levothyroxine (SYNTHROID, LEVOTHROID) 75 mcg tabletIndicati ons:Melena,Abn ormal findings on diagnostic imaging of other specified body structures TAKE 1 TABLET BY MOUTH EVERY DAY 90 tablet 1 01/08/20 25 025 Discontinued tirzepatide, weight loss, (Zepbound) 2.5 mg/0.5 mL injection Inject 0.5 mL (2.5 mg total) under the skin every 7 (seven) days. 2 mL 1 07/01/20 25 025 Discontinued Active Problems Problem Noted Date Diagnosed Date Morbid obesity with BMI of 4 0.0-44.9, adult ([facility] V24, [facility] V28) 08/14/2024 Vertigo 11/03/2021 Overview (08/14/2024): Dr. jose Constipation 04/26/2018 White coat syndrome with diagnosis of hypertensi on 03/09/2017 Meningioma ([facility] V24, [facility] V28) 10/01/2015 Overview (08/14/2024): Left middle temporal fossa- Dr. Jose Hypothyroidism 05/25/2006 Pure hypercholesterolemia 05/25/2006 Encounters Date Type Department Care Team Description 07/10/2025 Telephone Adult Medicine [address] [phone] Cindy De Los Santos MD 07/08/2025 Telephone Adult Medicine [address] [address] Cindy De Los Santos MD 07/01/2025 9:45 AM EDT Office Visit Adult Medicine [address] [phone] Cindy De Los Santos MD Hypothyroidism, unspecified [...] for your loved ones. For example, child neurologist or elderly care for an older adult? [...] 12:00 PM EST Office Visit Adult Medicine [address] [phone] Cindy De Los Santos MD [address] [place] [address] 01/08/2026 9:00 AM EDT Office Visit Adult [address] [phone] Cindy De Los Santos MD [address] [place] [address] Health Maintenance Due Date Last Done Comments [...] mg/dL LAB CHEMISTRY METHOD 12/26/2024 1:01 PM [facility] Triglycerides 143 0 - 150 mg/dL LAB CHEMISTRY METHOD 12/26/2024 1:01 PM [facility] HDL 61 >=40 mg/dL LAB CHEMISTRY METHOD 12/26/2024 1:01 PM [facility] LDL Calculated 99 0 - 100 mg/dL LAB CHEMISTRY METHOD 12/26/2024 1:01 PM [facility] VLDL Cholesterol Uriel 28.6 mg/dL LAB CHEMISTRY METHOD 12/26/2024 1:01 PM [facility] Non HDL Chol. (LDL+VLDL) 128 <145 mg/dL LAB CHEMISTRY METHOD [facility] Chol/HDL Ratio 3.1 0.0 - 4.4 LAB CHEMISTRY METHOD 12/26/2024 1:01 PM [facility] Blood Venous blood specimen / Unknown Venipuncture / Unknown 12/26/2024 9:05 AM EDT 12/26/2024 9:05 AM EDT us Dash THACKER LAB BLOOD ORDERABLES Fin al Result [facility] [address] [place] [address], * (ABNORMAL) Comprehensive metabolic panel (12/26/2024 9:05 AM EDT) Sodium 141 133 - 145 mmol/L LAB CHEMISTRY METHOD 12/26/2024 1:01 PM [facility] Potassium 4.2 3.5 - 5.5 mmol/L LAB CHEMISTRY METHOD 12/26/2024 1:01 PM [facility] Chloride 109 96 - 110 mmol/L LAB CHEMISTRY METHOD 12/26/2024 1:01 PM [facility] CO2 28 21 - 32 mmol/L LAB CHEMISTRY METHOD 12/26/2024 1:01 PM [facility] Anion Gap 4 3 - 11 LAB CHEMISTRY METHOD 12/26/2024 1:01 PM [facility] Glucose 111(H) 70 - 100 mg/dL LAB CHEMISTRY METHOD 12/26/2024 1:01 PM [facility] BUN 27(H) 5 - 25 mg/dL LAB CHEMISTRY METHOD 12/26/2024 1:01 PM [facility] Creatinine 0.98 0.50 - 1.10 mg/dL LAB CHEMISTRY METHOD 12/26/2024 1:01 PM [facility] eGFR 61 >=60 mL/min/1. 73m2 LAB CHEMISTRY METHOD 12/26/2024 1:01 PM [facility] Comment:Calculation based on the Chronic Kidney Disease Epidemiology Collaboration (CKD-EPI) equation refit without adjustment for race. BUN/Creatinine Ratio 27.6 LAB CHEMISTRY METHOD 12/26/2024 1:01 PM [facility] Calcium 9.1 8.5 - 10.5 mg/dL LAB CHEMISTRY METHOD 12/26/2024 1:01 PM [facility] AST (SGOT) 14 10 - 42 unit/L LAB CHEMISTRY METHOD 12/26/2024 1:01 PM [facility] ALT (SGPT) 27 10 - 60 unit/L LAB CHEMISTRY METHOD 12/26/2024 1:01 PM [facility] Alkaline Phosphatase 66 42 - 121 unit/L LAB CHEMISTRY METHOD 12/26/2024 1:01 PM [facility] Total Protein 6.7 6.0 - 8.0 g/dL LAB CHEMISTRY METHOD 12/26/2024 1:01 PM [facility] Albumin 3.9 3.2 - 5.0 g/dL LAB CHEMISTRY METHOD 12/26/2024 1:01 PM [facility] Total Bilirubin 0.6 0.0 - 1.4 mg/dL LAB CHEMISTRY METHOD 12/26/2024 1:01 PM [facility] Blood Venous blood specimen / Unknown Venipuncture / Unknown 12/26/2024 9:05 AM EDT 12/26/2024 9:05 AM EDT us Dash THACKER LAB BLOOD ORDERABLES Fin al Result [facility] [address] [place] [address], * SCREENING MAMMOGRAPHY BI 2-VIEW BREAST INC [...] Recommendation: Routine annual screening mammography is recommended [address] [address] Procedure Note Hortencia Auguste MD - 07/30/2024 [...] Recommendation: Routine annual screening mammography is recommended [address] [phone] Cindy De Los Santos MD IMG XR PROCEDURES Final Result * Colonoscopy (08/31/2023) Colonoscopy abstract Dary esquivel Anatomical Region Laterality Modality Other Historical Provider HEALTH MAINTENANCE Final Result * DXA BONE DENSITY STUDY 1+ SITS AXIAL SKEL (07/19/2023 11:46 AM EST) Anatomical Region Laterality Modality Bone Densitometr y 11/01/2022 4:51 PM EST Narrative 07/19/2023 5:28 PM EST Clinical history: menopausal/postmenopausal disorder Scans of the lumbar spine and hips were performed on a [employer] fan beam bone densitometer. Bone mineral density [...] spine and hips were performed on a [employer]el/[employer]fan beam bone densitometer. Bone mineral density measurements [...] with fractures Cindy De Los Santos MD IMGreg DXA PROCEDURES Final Result * Hepatitis C Screening (08/13/2014) [facility] Hepatitis C Screening Abstracted Historical Provider HEALTH MAINTENANCE Final Result from Last 3 Months or Most Recently Relevant to Health Maintenance Insurance [facility] MEDICARE ADVANTAGE Care Teams Respiratory Care Assistant Relationship Specialty Start Date End Date Cindy De Los Santos MD [address] [place] [address] PCP - General 06/09/00
--- OUTSIDE RECORDS SUMMARY | 2025-07-24 19:05 | XMS_ITS | Clinical Summary ---
Author Organization [facility] Address [address] [place] [address] Care Team Providers Care Work Order Clerk Name Role Phone Cindy De Los Santos MD Primary Care Provider [phone] Allergies Active Allergy Reactions Severity Noted Date Comments Prempro Nausea and Vomiting 05/25/2006 Prempro Rash/Dermatitis 05/25/2006 Medications Medication Sig Dispensed Refills Start Date End Date Status aspirin 81 MG tablet Take 81 mg by mouth daily. 0 Active CALCIUM-VITAMIN D OR Take by mouth. 0 Active betamethasone valerate (VALISONE) 0.1 % ointment Place a pea size drop on finger tip and apply to external genitalia every night for 2 weeks, then every other day for two week, followed by twice per week for one month and then weekly 30 g 0 11/28/2020 Active Meclizine HCl 25 MG Tab Take 1 Tablet by mouth 3 times daily as needed (dizziness). 30 Tablet 0 08/02/2023 Active ascorbic acid (VITAMIN C) 1000 MG tablet Take 1 Tablet by mouth. 0 Active Multiple Vitamin (multivitamin) tablet Take 1 Tablet by mouth. 0 Active Cholecalciferol 25 MCG (1000 UT) Cap Take 1 Capsule by mouth. 0 Active levothyroxine (SYNTHROID, LEVOTHROID) 75 MCG tabletIndications:Abn ormal CXR,Hematochezia,Cons tipation, unspecified constipation type,Hypothyroidism, unspecified type,Pure hypercholesterolemia, Essential hypertension TAKE 1 TABLET BY MOUTH EVERY DAY 90 Tablet 1 01/20/2024 Active atorvastatin (LIPITOR) 20 MG tablet TAKE 1 TABLET BY MOUTH EVERY DAY 90 Tablet 1 01/13/2024 Active lisinopril (PRINIVIL,ZESTRIL) 10 MG tablet TAKE 1 TABLET BY MOUTH EVERY DAY 90 Tablet 1 01/18/2024 Active Diclofenac Sodium (Voltaren) 1 % Gel Apply 1 Dose topically See Admin Instructions. Apply 4 g to each affected area up to 4 times daily; maximum dose per joint: 16 g/day; maximum total body dose (all combined joints): 32 g/day. 50 g 1 05/24/2024 Active Active Problems Problem Noted Date Vertigo 11/03/2021 Overview: Dr. jose Constipation 04/26/2018 White coat syndrome with diagnosis of hy pertension 03/09/2017 Meningioma 10/01/2015 Overview: Left middle temporal fossa- Dr. Jose History of colonic polyps 10/24/2006 Overview: Negative colonoscopy 10/24/2006 and 2012, next exam due 2017. Family history of malignant neoplasm of gastrointestinal tract 10/24/2006 Overview: first-degree x 1, diagnosis older than 60. Negative colonoscopy 10/24/2006, no colon cancer screening needed for 5 years. Pure hypercholesterolemia 05/25/2006 Hypothyroidism 05/25/2006 Morbid obesity with BMI of 40.0-44.9, ad ult 05/25/2006 Resolved Problems Problem Noted Date Resolved Date Elevated blood pressure 03/09/2017 03/09/20 17 Chest pain, unspecified 05/25/2006 04/26/20 18 Overview: stress Echo 06/[address] Sun reported the patient went 7 minutes and 30 seconds on stage 3 of the protocol, reaching a heart rate of 142 beats per minute (96% of predicted maximum) with no chest pain and no echo evidence of stress induced ischemia. This was thus a negative test. Immunizations Name Administration Dates Next Due COVID-19 (Moderna Booster) 06/25/2023 COVID-19 (Moderna) 01/10/2022, 1,01/28/2021,2020 COVID-19 (Moderna) PT Reported 4,01/10/2022,08/15/2021,2020,12/31/2020 Covid-19 Bivalent (Moderna) 06/09/2022 Covid-19 Pfizer Omicron (Pt Reported)-Comirnaty 06/25/2023 Flu (Generic) 05/28/2020, 5,07/16/2014,2012,06/14/2012,08/18/2009,07/11/2008 Influenza (> 6 Months) 06/25/2023,2021,05/28/2020,2014,05/26/2015,07/16/2014,07/16/2014,1 09/23/2012,07/24/2013,06/14/2012, 012,08/18/2009,08/18/2009,07/11/2008, Influenza (>6 Months) Split Preservative Free 07/19/2016 Influenza Flu (PT Reported) 06/05/2021, 9 Influenza H1N1 Pandemic Flu Vaccine 08/18/2009 Influenza Vaccine-quadrivale nt 4 Years Plus 08/16/2017 Influenza vaccine high dose age 65 and over 06/25/2023,06/09/2022,06/05/2021,2018,06/11/2018 PREVNAR 20 08/02/2023,08/02/2023 Pneumococcal Conjugate PCV-13 03/30/2017 Shingrix (Recombinant zoster vaccine) 01/19/2024 ,08/12/2023 TD (STATE SUPPLIED FOR ADULT S AND CHILDREN) 05/31/2005,08/14/2003 TETANUS/DIPTHERIA (ADULT) 08/14/2003 Tdap 08/02/2023,04/01/2011 Tdap (Adacel) 05/31/2005 Zostavax 05/29/2014 Family History Medical History Relation Name Comments [place] Father age 49, fr om [place] no details (pt smoker, may be lung Ca) Alzheimers Disease Mother Arthritis Mother Cancer of the Colon Mother CA Breast Sister 2 CA Ovarian Negative Hx Cancer of Small Bowel Negative Hx Cancer of the Pancreas Negative Hx Cancer of the Renal Cell Negative Hx Uterine Cancer Negative Hx Relation Name Status Comments Brother 1 [...] file Not on file Not on file Last Filed Vital Signs Vital Sign Reading Time Taken Comments Blood Pressure 118/80 05/24/2024 9:36 AM EDT Pulse 72 05/24/2024 9:36 AM EDT Temperature 36.4 C (97.5 F) 05/24/2024 9:36 AM EDT Respiratory Rate 16 05/24/2024 9:36 AM EDT Oxygen Saturation 98% 05/24/2024 9:36 AM EDT Inhaled Oxygen Concentration - - Weight 93.4 kg (206 lb) 05/24/2024 9:36 AM EDT Height 152.4 cm (5') 05/24/2024 9:36 AM EDT Body Mass Index 40.23 05/24/2024 9:36 AM EDT Plan of Treatment Health Maintenance Due Date Last Done Comments BMI CHECK/ADVISE 09/05/2024 05/24/2024, 02/2024, 08/02/2023, Additional history exists Covid-19 Vaccine ( season) 2025 06/25/2024, 06/25/2023, 06/25/2023, Additional history exists INFLUENZA (#1) 2025 06/25/2023, 06/06, 06/09/2022, Additional history exists DIABETES/HEART DISEASE: FRANCISCA AL CHOLESTEROL (LDL) 05/29/2025 05/29/2024, 10/26/2023, 08/03/2021, Additional history exists MAMMOGRAM 06/27/2025 06/27/2024, 10/2022, 05/01/2022, Additional history exists BONE DENSITY SCREENING 07/19/2025 , 04/23/2020, 12/23/2016, Additional history exists COLON CANCER SCREENING 08/31/2028 , 08/08/2018, 10/16/2012, Additional history exists DTAP/TDAP/TD (4 - Td or Tdap) 08/02/2033, 04/01/2011, 05/31/2005, Additional history exists HEPATITIS C SCREENING Completed 08/13/2014 PNEUMOCOCCAL VACCINE Completed 08/02/2023, 08/02/2023, 03/30/2017 SHINGLES VACCINE Completed 01/19/2024, 04/2023, 05/29/2014 Care Teams Work Order Clerk Relationship Specialty Start Date End Date Cindy De Los Santos MD [address] [place] [address] PCP - General 06/09/00
--- OUTSIDE RECORDS SUMMARY | 2025-07-24 19:06 | XMS_ITS | Encounter Summary ---
Author Organization [facility] Address [address] [place] [address] Care Team Providers Care Jig Filler Name Role Phone Cindy De Los Santos MD Primary Care Provider [phone] Encounter Details Date Type Department Care Team Description 10/13/2021 Soil Conservation Teacher Report Medical Records [address] [place] [address] Kevon Jose MD Social History Tobacco Use Types Packs/Day [...] on filedocumented in this encounter Care Teams Jig Filler Relationship Specialty Start Date End Date Cindy De Los Santos MD [address] [place], [place] [phone] PCP - General 06/09/00 documented as of this encounter
--- OUTSIDE RECORDS SUMMARY | 2025-07-24 19:06 | XMS_ITS | Encounter Summary ---
Author Organization [facility] Address [facility] [place] [address] Care Team Providers Care Skid Strapper Name Role Phone Cindy De Los Santos MD Primary Care Provider [phone] Reason for Visit * Reason Comments E-prescribe Rx Request Encounter Details Date Type Department Care Team Description 03/17/2021 Refill Medicine/Pediatrics - [address] [phone] Cindy De Los Santos MD [address] [place] [address] [phone] E-prescribe Rx Request Social History Tobacco Use [...] Exposure Response Date Recorded In the last month, have you been in contact with someone who was confirmed or suspected to have Coronavirus / COVID-19? No / Unsure 03/04/2021 11:27 AM EDT documented as of this encounter Miscellaneous Notes * Telephone Encounter - Anyi Denny M.A. - 03/17/2021 10:01 AM EDT Lab Results Component Value Date CHOL 166 08/25/2020 LDL 79 08/25/2020 HDL 61 08/25/2020 TRIG 133 08/25/2020 SGOT 16 08/25/2020 SGPT 25 08/25/2020 Last appt with pcp 03/13/21 * Telephone Encounter - Franklin Jihan - 03/17/2021 9:23 AM EDT The patient is calling today because she is out of the medication today. * Telephone Encounter - Greg Newton - 03/17/2021 9:00 AM EDT Patient would like script to be: E-PRESCRIBED/FAXED TO PHARMACY WHEN WAS THE PATIENT'S LAST APPOINTMENT IN ADULT MEDICINE? 03/13/2021 WHEN WAS THE LAST TIME THE PATIENT SAW THEIR PCP? Same as above Does patient have an upcoming appointment? Yes 08/10/2021 (THE MEDICATION REQUESTED IS ON THE MED [...] N/A Patients current insurance carrier is: Payor[place] / Plan: [place] PPO BLUE $10/$40 [place] [id number] / Product Type: PPO [id number] documented in this encounter Plan of Treatment Not on file documented as of this encounter Visit Diagnoses Not on filedocumented in this encounter Care Teams Skid Strapper Relationship Specialty Start Date End Date Cindy De Los Santos MD [address] [place] [address] PCP - General 06/09/00 documented as of this encounter
--- OUTSIDE RECORDS SUMMARY | 2025-07-24 19:06 | XMS_ITS | Encounter Summary ---
Author Organization [facility] Address [address] [place] [address] Care Team Providers Care Bookkeeping Machine Operator Name Role Phone Cindy De Los Santos MD Primary Care Provider [phone] Reason for Visit * Reason Onset Date Comments Advice 08/14/2021 Encounter Details Date Type Department Care Team Description 08/14/2021 Refill Adult Medicine [facility] [address] [place] [address] [phone] Cindy De Los Santos MD [address] [place] [address] [phone] Advice Social History Tobacco Use Types Packs/Day Years [...] have Coronavirus / COVID-19? No / Unsure 08/10/2021 3:40 PM EST documented as of this encounter Miscellaneous Notes * Telephone Encounter - Franklin Galeano - 08/14/2021 9:53 AM EST Patient called stating [facility] , and states that we need to call and request for them to be sent over to us a confirmation that the flu shot wasn't done there or was done , im honestly really confused by what the patient was told by [facility] , patient wants access to see when her last flu shot was documented in this encounter Plan of Treatment Not on file documented as of this encounter Visit Diagnoses Not on filedocumented in this encounter Care Teams Bookkeeping Machine Operator Relationship Specialty Start Date End Date Cindy De Los Santos MD [address] [place] [phone] PCP - General 06/09/00 documented as of this encounter
--- OUTSIDE RECORDS SUMMARY | 2025-07-24 19:06 | XMS_ITS | Encounter Summary ---
Author Organization [facility] Address [address] [place] [address] Care Team Providers Care Manager Welding Name Role Phone Cindy De Los Santos MD Primary Care Provider [phone] Reason for Visit * Reason Comments E-prescribe Rx Request Encounter Details Date Type Department Care Team Description 10/15/2021 Refill Adult Medicine [address] [phone] Cindy De Los Santos MD [address] [place] [address] [phone] E-prescribe Rx Request Social History Tobacco Use [...] Telephone Encounter - Anyi Denny M.A. - 10/15/2021 3:08 PM EST Lab Results Component Value Date NA 141 03/04/2021 K 4.3 03/04/2021 CO2 27 03/04/2021 CL 110 03/04/2021 BUN 33 03/04/2021 CREAT 1.04 03/04/2021 GLU 106 03/04/2021 CA 8.9 03/04/2021 GFR 52 03/04/2021 Last appt with pcp 08/10/21 * Telephone Encounter - Franklin Galeano - 10/15/2021 1:23 PM EST Patient would like script to be: E-PRESCRIBED/FAXED TO PHARMACY WHEN WAS THE PATIENT'S LAST APPOINTMENT IN ADULT MEDICINE? 08/10/21 WHEN WAS THE LAST TIME THE PATIENT SAW THEIR PCP? Same as above Does patient have an upcoming appointment? Yes 11/10/21 (THE MEDICATION REQUESTED IS ON THE MED [...] N/A Patients current insurance carrier is: Payor: [employer]/[place] POS / Plan: ML DUN[place]AP [place] $10/$40 [place] [id number] / Product Type: PPO [id number] documented in this encounter Plan of Treatment Not on file documented as of this encounter Visit Diagnoses Diagnosis Abnormal CXR Other nonspecific abnormal finding of lung field Hematochezia Blood in stool Constipation, unspecified constipation type Hypothyroidism, unspecified type Pure hypercholesterolemia Essential hypertension Unspecified essential hypertension documented in this encounter Care Teams Manager Welding Relationship Specialty Start Date End Date Cindy De Los Santos MD [address] [place] [address] PCP - General 06/09/00 documented as of this encounter
== END 2025-07-24 10:06 | disposition home or self-care (01) ==
LOC: HO.HMGAL 10:06
PROVIDERS: PCP Internal Medicine; Visit Provider Registered Nurse Emergency
DX: J30.89 Other allergic rhinitis (principal)
CPT/HCPCS: 95117; 95165

== ENCOUNTER 2025-08-21 09:20 | Outpatient (AMB) | payer MEDICARE, SELFPAY ==
--- OUTSIDE RECORDS SUMMARY | 2025-08-21 10:34 | XMS_ITS | Encounter Summary ---
Author Organization [facility] Prior to 07/06/[address] [place] [address] Care Team Providers Care Agricultural Adviser Name Role Phone Cindy De Los Santos MD Primary Care Provider [phone] Encounter Details Date Type Department Care Team Description 03/10/2023 Ambulatory Blood Pressure Monitoring Medical Records [address] [place] [address] Abstract, Provider Social History Tobacco Use Types [...] on filedocumented in this encounter Care Teams Agricultural Adviser Relationship Specialty Start Date End Date Cindy De Los Santos MD [address] [place] [address] [phone] PCP - General 06/09/00 documented as of this encounter
--- OUTSIDE RECORDS SUMMARY | 2025-08-21 10:34 | XMS_ITS | Encounter Summary ---
Author Organization [facility] Prior to 07/06/[address] [place] [address] Care Team Providers Care Assembler Dc Field Ring Name Role Phone Cindy De Los Santos MD Primary Care Provider [phone] Reason for Visit * Reason Onset Date Comments Prior Authorization 03/10/2017 celecoxib (C ELEBREX) 200 MG capsule Encounter Details Date Type Department Care Team Description 03/10/2017 Telephone Adult Medicine [address] [address] [facility] [address] [place] [address] [phone] Prior Authorization (celecoxib (CELEBREX) 200 MG capsule) Social History Tobacco Use Types Packs/Day Years [...] encounter Miscellaneous Notes * Telephone Encounter - Samra Goff M.A. - 03/10/2017 11:13 AM EDT Medication was approved i will notify pharmacy and patient [place] to p [phone] Prior Auth pool Samra Goff M.A. [facility] Prior Authorizations Ext [phone] * Telephone Encounter - GWEN Molina - 03/10/2017 10:43 AM EDT She has gastritis to those nsaids- could we do prior auth GWEN Molina * Telephone Encounter - Samra Goff M.A. - 03/10/2017 10:22 AM EDT Covered alternatives feldene,indocin,naprosyn,voltaren,clinoril,relafen [place] p [phone] Prior Auth valdemar Goff M.A. [facility] Prior Authorizations Ext [phone] * Telephone Encounter - Hali Davila - 03/10/2017 9:59 AM EDT Pre Authorization for Medication-do not complete and send this encounter unless you have the fax from the pharmacy. Is this a Cover My Meds request: [place] of Medication celecoxib (CELEBREX) 200 MG capsule Dose of Medication 200 MG How does patient take this med? Take 1 Cap by mouth 2 times daily for 30 days. What Pharmacy did the fax come from: [place], [place] Pharmacy fax #: [phone] [employer] Information from fax: What Prescription Plan does the patient have? Kopo Kopo/PCN if applicable: [facility] [id number] Cardholder ID:[id number] Person Code: 01 Relationship Code: 1 Help desk phone: [phone] documented in this encounter Plan of Treatment Not on file documented as of this encounter Visit Diagnoses Not on filedocumented in this encounter Care Teams Assembler Dc Field Ring Relationship Specialty Start Date End Date Cindy De Los Santos MD [address] [place] [address] PCP - General 06/09/00 documented as of this encounter
--- OUTSIDE RECORDS SUMMARY | 2025-08-21 10:35 | XMS_ITS | Encounter Summary ---
Author Organization [facility] Prior to 07/06/[address] [place] [address] Care Team Providers Care Net Ui Developer Name Role Phone Cindy De Los Santos MD Primary Care Provider [phone] Reason for Visit * Reason Comments E-prescribe Rx Request Encounter Details Date Type Department Care Team Description 02/01/2019 Refill Adult Medicine [facility] [address] [place] [address] [facility] [address] [place] [address] [phone] E-prescribe Rx Request Social History Tobacco Use [...] Telephone Encounter - Leydi Benitez M.A. - 02/01/2019 12:52 PM EDT Lab Results Component Value Date TSH 3.38 11/26/2018 * Telephone Encounter - Iza Brie - 02/01/2019 12:36 PM EDT Patient would like script to be: E-PRESCRIBED/FAXED TO PHARMACY WHEN WAS THE PATIENT'S LAST APPOINTMENT IN ADULT MEDICINE? 11/07/18 WHEN WAS THE LAST TIME THE PATIENT SAW THEIR PCP? 02/26/17 Does patient have an upcoming appointment? Patient will call to schedule an appointment. (THE MEDICATION REQUESTED IS ON THE MED [...] N/A Patients current insurance carrier is: Payor: [facility]/MEDICARE PPO / Plan: [facility] MDCR-ADV PPO $20/$40 [place] / Product Type: MEDICARE [id number] documented in this encounter Plan of Treatment Not on file documented as of this encounter Visit Diagnoses Diagnosis Abnormal CXR Other nonspecific abnormal finding of lung field Hematochezia Blood in stool Constipation, unspecified constipation type Hypothyroidism, unspecified type Pure hypercholesterolemia Essential hypertension Unspecified essential hypertension documented in this encounter Care Teams Net Ui Developer Relationship Specialty Start Date End Date Cindy De Los Santos MD [address] [place] [address] PCP - General 06/09/00 documented as of this encounter
--- OUTSIDE RECORDS SUMMARY | 2025-08-21 10:35 | XMS_ITS | Encounter Summary ---
Author Organization [facility] Prior to 07/06/[address] [place] [address] Care Team Providers Care Manager Machine Name Role Phone Cindy De Los Santos MD Primary Care Provider [phone] Encounter Details Date Type Department Care Team Description 09/02/2023 Orders Only Medical Records [address] [place] [address] Tiago Sanders MD [address] [place] [address] [place] [address] Social History Tobacco Use Types Packs/Day Years [...] on filedocumented in this encounter Care Teams Manager Machine Relationship Specialty Start Date End Date Cindy De Los Santos MD [address] [place] [address] [phone] PCP - General 06/09/00 documented as of this encounter
--- OUTSIDE RECORDS SUMMARY | 2025-08-21 10:35 | XMS_ITS | Encounter Summary ---
Author Organization [facility] Prior to 07/06/2024 Address [address] [place] [address] Care Team Providers Care Electrical Prospecting Observer Name Role Phone Cindy De Los Santos MD Primary Care Provider [phone] Reason for Visit * Reason Onset Date Comments refill request 03/26/2020 Encounter Details Date Type Department Care Team Description 03/26/2020 Refill Adult Medicine - [address] [address] Cindy De Los Santos MD [address] [place] [address] refill request Social History Tobacco Use Types [...] N/A Patients current insurance carrier is: Payor: [facility]/MEDICARE PPO / Plan: [facility] MDCR-ADV PPO $20/$40 [place] / Product Type: MEDICARE [id number] documented in this encounter Plan of Treatment Not on file documented as of this encounter Visit Diagnoses Diagnosis Abnormal CXR Other nonspecific abnormal finding of lung field Hematochezia Blood in stool Constipation, unspecified constipation type Hypothyroidism, unspecified type Pure hypercholesterolemia Essential hypertension Unspecified essential hypertension documented in this encounter Care Teams Electrical Prospecting Observer Relationship Specialty Start Date End Date Cindy De Los Santos MD [address] [place] [address] PCP - General 06/09/00 documented as of this encounter
--- OUTSIDE RECORDS SUMMARY | 2025-08-21 10:35 | XMS_ITS | Encounter Summary ---
Author Organization [facility] Prior to 07/06/[address] [place] [address] Care Team Providers Care Breeding Manager Name Role Phone Cindy De Los Santos MD Primary Care Provider [phone] Reason for Visit * Reason Comments E-prescribe Rx Request Encounter Details Date Type Department Care Team Description 03/17/2021 Refill Medicine/Pediatrics - [address] [address] Cindy De Los Santos MD [address] [place] [address] [phone] E-prescribe Rx Request Social History Tobacco Use [...] carrier is: [place]or[place] / Plan: BCBS PPO BLUE $10/$40 [place] [id number] / Product Type: PPO [id number] documented in this encounter Plan of Treatment Not on file documented as of this encounter Visit Diagnoses Not on filedocumented in this encounter Care Teams Breeding Manager Relationship Specialty Start Date End Date Cindy De Los Santos MD [address] [place] [address] PCP - General 06/09/00 documented as of this encounter
--- OUTSIDE RECORDS SUMMARY | 2025-08-21 10:35 | XMS_ITS | Clinical Summary ---
Author Organization [address] [place] [address] [place] [phone] Phone Care Team Providers Care Corner Former Name Role Phone Cindy De Los Santos MD Primary Care Provider [phone] Allergies Active Allergy Reactions Criticality Noted Date [...] days. 2 mL 3 07/24/20 25 Active tirzepatide, weight loss, (Zepbound) 2.5 mg/0.5 mL injection Inject 0.5 mL (2.5 mg total) under the skin every 7 (seven) days. 2 mL 1 07/01/20 25 025 Discontinued Active Problems Problem Noted Date Diagnosed Date Morbid obesity with BMI of 40.0-44.9, adult 08/05 Vertigo 11/03/2021 Overview (08/14/2024): Dr. jose Constipation 04/26/2018 White coat syndrome with diagnosis of hypertensi on 03/09/2017 Meningioma 10/01/2015 Overview (08/14/2024): Left middle temporal fossa- Dr. Jose Hypothyroidism 05/25/2006 Pure hypercholesterolemia 05/25/2006 Encounters Date Type Department Care Team Description 08/09/2025 Telephone Adult Medicine [address] [phone] Cindy De Los Santos MD 07/10/2025 Telephone Adult Medicine [address] [phone] Cindy De Los Santos MD 07/08/2025 Telephone Adult Medicine [address] [phone] Cindy De Los Santos MD 07/01/2025 9:45 AM EDT Office Visit Adult Medicine [address] [phone] Cindy De Los Santos MD Hypothyroidism, unspecified type (Primary Dx); Pure hypercholesterolemia; Morbid obesity with BMI of 40.0-44.9, adult ([facility] V24, [facility] V28); Elevated blood pressure reading; Hyperglycemia; Subconjunctival [...] care for your loved ones. For example, children's tutor nursery or elderly care for an older adult? [...] 10/01/2025 12:00 PM EST Office Visit Adult [address] [phone] Cindy De Los Santos MD [address] [place] [address] 01/08/2026 9:00 AM EDT Office Visit [address] [phone] Cindy De Los Santos MD [address] [place] [phone] Health Maintenance Due Date Last Done Comments Medicare Annual Wellness Visit 08/14/2022 RSV Immunization Adult Patients (1 - 1-dose 75+ series) 2025 COVID-19 Vaccine ( season) 2025 06/07/2025, 06/25/2024, 06/25/2023, Additional history exists Hypertension/CHF/CAD Annual BMP Blood Test 12/26/2025 12/26/2024, 05/29/2024, 05/29/2024 Falls Risk Assessment 07/01/2026 07/01/2025 Social Influencers [...] 03/30/2017 Zoster Vaccines Completed 01/19/2024, 04/2023, 05/29/2014 Breast Cancer Screening Discontinued 06/27/20, 06/27/2024, 05/07/2023, Additional history exists Influenza Vaccine Completed 06/07/2025, , 06/25/2023, Additional [...] mg/dL LAB CHEMISTR[facility] Triglycerides 143 0 - 150 mg/dL LAB CHEMISTRY METHOD 12/26/2024 1:01 PM [facility] HDL 61 >=40 mg/dL LAB CHEMISTRY METHOD 12/26/2024 1:01 PM [facility] LDL Calculated 99 0 - 100 mg/dL LAB CHEMISTRY METHOD 12/26/2024 1:01 PM [facility] VLDL Cholesterol Uriel 28.6 mg/dL LAB CHEMISTRY METHOD 12/26/2024 1:01 PM [facility] Non HDL Chol. (LDL+VLDL) 128 <145 mg/dL LAB CHEMISTRY METHOD 12/26/2024 1:01 PM [facility] Chol/HDL Ratio 3.1 0.0 - 4.4 LAB CHEMISTRY METHOD 12/26/2024 1:01 PM [facility] Blood Venous blood specimen / Unknown Venipuncture / Unknown 12/26/2024 9:05 AM EDT 12/26/2024 9:05 AM EDT us Dash Sean Thurman PA LAB BLOOD ORDERABLES Fin al Result [facility] [address] [place] [address], * (ABNORMAL) Comprehensive metabolic panel (12/26/2024 9:05 AM EDT) Sodium 141 133 - 145 mmol/L LAB CHEMISTRY METHOD 12/26/2024 1:01 PM [facility] Potassium 4.2 3.5 - 5.5 mmol/L LAB CHEMISTRY METHOD 12/26/2024 1:01 PM [facility] Chloride 109 96 - 110 mmol/L LAB CHEMISTRY METHOD 12/26/2024 1:01 PM [facility] CO2 28 21 - 32 mmol/L LAB CHEMISTRY METHOD 12/26/2024 1:01 PM [facility] Anion Gap 4 3 - 11 LAB CHEMISTRY METHOD 12/26/2024 1:01 PM [facility] Glucose 111(H) 70 - 100 mg/dL LAB CHEMISTRY METHOD 12/26/2024 1:01 PM [facility] BUN 27(H) 5 - 25 mg/dL LAB CHEMISTRY METHOD 12/26/2024 1:01 PM [facility] Creatinine 0.98 0.50 - 1.10 mg/dL LAB CHEMISTRY METHOD 12/26/2024 1:01 PM [facility] eGFR 61 >=60 mL/min/1. 73m2 LAB CHEMISTRY METHOD 12/26/2024 1:01 PM [facility] Comment:Calculation based on the Chronic Kidney Disease Epidemiology Collaboration (CKD-EPI) equation refit without adjustment for race. BUN/Creatinine Ratio 27.6 LAB CHEMISTRY METHOD 12/26/2024 1:01 PM [facility] Calcium 9.1 8.5 - 10.5 mg/dL LAB CHEMISTRY METHOD 12/26/2024 1:01 PM EDT [facility] AST (SGOT) 14 10 - 42 unit/L LAB CHEMISTRY METHOD 12/26/2024 1:01 PM EDT [facility] ALT (SGPT) 27 10 - 60 unit/L LAB CHEMISTRY METHOD 12/26/2024 1:01 PM EDT [facility] Alkaline Phosphatase 66 42 - 121 unit/L LAB CHEMISTRY METHOD 12/26/2024 1:01 PM EDT [facility] Total Protein 6.7 6.0 - 8.0 g/dL LAB CHEMISTRY METHOD 12/26/2024 1:01 PM EDT [facility] Albumin 3.9 3.2 - 5.0 g/dL LAB CHEMISTRY METHOD 12/26/2024 1:01 PM EDT [facility] Total Bilirubin 0.6 0.0 - 1.4 mg/dL LAB CHEMISTRY METHOD 12/26/2024 1:01 PM EDT [facility] Blood Venous blood specimen / Unknown Venipuncture / Unknown 12/26/2024 9:05 AM EDT 12/26/2024 9:05 AM EDT Dash THACKER LAB BLOOD ORDERABLES Fin al Result Performing Organization Address [facility]/State/ZIP Co de Phone Number [facility] [address] [place] [address], * SCREENING MAMMOGRAPHY BI 2-[employer] [...] Recommendation: Routine annual screening mammography is recommended [address] [phone] Procedure Note Hortencia Auguste MD - 07/30/2024 [...] Recommendation: Routine annual screening mammography is recommended [address] [address] Cindy De Los Santos MD IMG XR PROCEDURES Final Result * Colonoscopy (08/31/2023) [facility] Anatomical Region Laterality Modality Other Historical Provider HEALTH MAINTENANCE Final Result * DXA BONE DENSITY STUDY 1+ SITS AXIAL SKEL (07/19/2023 11:46 AM EST) Anatomical Region Laterality Modality Bone Densitometr y 11/01/2022 4:51 PM EST Narrative 07/19/2023 5:28 PM EST Clinical history: menopausal/postmenopausal disorder Scans of the lumbar spine and hips were performed on a [employer] fan beam bone densitometer. Bone mineral density [...] spine and hips were performed on a [employer] beam bone densitometer. Bone mineral density measurements [...] Final Result * Hepatitis C Screening (08/13/2014) [facility] Hepatitis C Screening Abstracted Historical Provider HEALTH MAINTENANCE Final Result from Last 3 Months or Most Recently Relevant to Health Maintenance Insurance [place]) MEDICARE ADVANTAGE Care Teams Corner Former Relationship Specialty Start Date End Date Cindy De Los Santos MD [address] [place] [address] PCP - General 06/09/00
--- OUTSIDE RECORDS SUMMARY | 2025-08-21 10:35 | XMS_ITS | Clinical Summary ---
Author Organization [facility] Prior to 07/06/[address] [place] [address] Care Team Providers Care Physical Anthropologist Name Role Phone Cindy De Los Santos MD Primary Care Provider [phone] Allergies Active Allergy Reactions Severity Noted Date [...] Family History Medical History Relation Name Comments [place] Father age 49, fr om [place] no [...] VACCINE Completed 01/19/2024, 04/2023, 05/29/2014 Care Teams Physical Anthropologist Relationship Specialty Start Date End Date Cindy De Los Santos MD [address] [place] [phone] PCP - General 06/09/00
--- OUTSIDE RECORDS SUMMARY | 2025-08-21 10:35 | XMS_ITS | Encounter Summary ---
Author Organization [facility] Address [address] [place] [address] Care Team Providers Care Legal Librarian Name Role Phone Cindy De Los Santos MD Primary Care Provider [phone] Reason for Visit * Reason Onset Date Comments prior auth for medication 08/09/2025 Encounter Details Date Type Department Care Team ([facility] st Contact Info) Description 08/09/2025 Telephone Adult Medicine [facility] [address] [place] [phone] Cindy De Los Santos MD [address] [place] [address] Social History Tobacco Use Types Packs/Day Years [...] for your loved ones. For example, children's minister or elderly care for an older adult? [...] as of this encounter Progress Notes * Iza Simons MA - 08/09/2025 12:35 PM EST Pending for insurance determination * Lashell Arce - 08/09/2025 11:15 AM EST Prior Authorization for Medication-do not complete and send this encounter unless you have the fax from the pharmacy. Is this a Cover My Meds request: Yes -- Starr Code [id number] Name of Medication tirzepatide (Mounjaro) 2.5 mg/0.5 mL injection Dose of Medication What is the RX # from the faxed refill? How does patient take this med? What Pharmacy did the fax come from: [facility] Pharmacy fax #: [facility] Information from fax: What Prescription Plan does the patient have? BIN/PCN if applicable: Cardholder ID: Person Code: Relationship Code: Help desk phone: documented in this encounter Plan of Treatment Upcoming Encounters Date Type Department Care Team (Late st Contact Info) Description 10/01/2025 12:00 PM EST Office Visit [address] [phone] Cindy De Los Santos MD [address] [place] [address] 01/08/2026 9:00 AM EDT Office Visit [address] [phone] Cindy De Los Santos MD [address] [place] [phone] documented as of this encounter Visit Diagnoses Not on filedocumented in this encounter Additional Health Concerns Assessment Noted Time PHQ-9 Depression Total Score: 0 07/01/20 25 10:02 AM EDT A fall risk assessment has been complete d for the patient 07/01/2025 10:02 AM EDT documented as of this encounter Care Teams Legal Librarian Relationship Specialty Start Date End Date Cindy De Los Santos MD [address] [place] [phone] PCP - General 06/09/00 documented as of this encounter
--- OUTSIDE RECORDS SUMMARY | 2025-08-21 10:35 | XMS_ITS | Encounter Summary ---
Author Organization [facility] Prior to 07/06/2024 Address [address] [place] [address] Care Team Providers Care Wheel Roller Name Role Phone Cindy De Los Santos MD Primary Care Provider [phone] Encounter Details Date Type Department Care Team Description 08/09/2018 Telephone Gastroenterology - [address] [phone] Chin Holley MD Social History Tobacco Use [...] on filedocumented in this encounter Care Teams Wheel Roller Relationship Specialty Start Date End Date Cindy De Los Santos MD [address] [place] [address] [phone] PCP - General 06/09/00 documented as of this encounter
--- OUTSIDE RECORDS SUMMARY | 2025-08-21 10:35 | XMS_ITS | Encounter Summary ---
Author Organization [facility] Prior to 07/06/[address] [place] [address] Care Team Providers Care Gun Mechanic Name Role Phone Cindy De Los Santos MD Primary Care Provider [phone] Encounter Details Date Type Department Care Team Description 08/18/2012 Release of Information Medical Records [address] [place] [phone] Abstract, Provider Social History Tobacco Use Types [...] on filedocumented in this encounter Care Teams Gun Mechanic Relationship Specialty Start Date End Date Cindy De Los Santos MD [address] [place] [address] [phone] PCP - General 06/09/00 documented as of this encounter
--- OUTSIDE RECORDS SUMMARY | 2025-08-21 10:35 | XMS_ITS | Encounter Summary ---
Author Organization [facility] Prior to 07/06/2024 Address [address] [place] [address] Care Team Providers Care Benefits Specialist Name Role Phone Cindy De Los Santos MD Primary Care Provider [phone] Reason for Visit * Reason Onset Date Comments Cough 08/24/2019 Provider Call Back 08/24/2019 Encounter Details Date Type Department Care Team Description 08/24/2019 Telephone Adult Medicine [address] [phone] Cindy De Los Santos MD [address] [place] [address] [phone] Cough; Provider Call Back Social History Tobacco [...] on filedocumented in this encounter Care Teams Benefits Specialist Relationship Specialty Start Date End Date Cindy De Los Santos MD [address] [place] [phone] PCP - General 06/09/00 documented as of this encounter
--- OUTSIDE RECORDS SUMMARY | 2025-08-21 10:35 | XMS_ITS | Encounter Summary ---
Author Organization [facility] [employer] [facility] Prior to 07/06/[address] [place] [phone] Care Team Providers Care It Application Support Analyst Name Role Phone Cindy De Los Santos MD Primary Care Provider [phone] Encounter Details Date Type Department Care Team Description 08/31/2023 Orders Only Medical Records [address] [place] [address] Tiago Sanders MD [address] [place] [phone] Social History Tobacco Use Types Packs/Day Years [...] on filedocumented in this encounter Care Teams It Application Support Analyst Relationship Specialty Start Date End Date Cindy De Los Santos MD [address] [place] [address] PCP - General 06/09/00 documented as of this encounter
--- OUTSIDE RECORDS SUMMARY | 2025-08-21 10:36 | XMS_ITS | Encounter Summary ---
Author Organization [facility] Prior to 07/06/[address] [place] [address] Care Team Providers Care Mica Machine Operator Name Role Phone Cindy De Los Santos MD Primary Care Provider [phone] Reason for Visit * Reason Comments E-prescribe Rx Request Encounter Details Date Type Department Care Team Description 10/15/2021 Refill Adult Medicine [facility] [address] [place] [address] [phone] Cindy De Los Santos MD [address] [place] [address] [phone] E-prescribe Rx Request Social History Tobacco Use [...] carrier is: Payor: [employer] POS / Plan: ML [employer] [place] $10/$40 [place] [id number] / Product Type: PPO [id number] documented in this encounter Plan of Treatment Not on file documented as of this encounter Visit Diagnoses Diagnosis Abnormal CXR Other nonspecific abnormal finding of lung field Hematochezia Blood in stool Constipation, unspecified constipation type Hypothyroidism, unspecified type Pure hypercholesterolemia Essential hypertension Unspecified essential hypertension documented in this encounter Care Teams Mica Machine Operator Relationship Specialty Start Date End Date Cindy De Los Santos MD [address] [place] [phone] PCP - General 06/09/00 documented as of this encounter
== END 2025-08-21 09:20 | disposition home or self-care (01) ==
LOC: HO.HMGAL 09:20
PROVIDERS: PCP Internal Medicine; Visit Provider Registered Nurse Emergency
DX: J30.89 Other allergic rhinitis (principal)
CPT/HCPCS: 95117; 95165